=== PATIENT | male | born 1940 | race Caucasian/White ===

== ENCOUNTER → 2017-12-12 07:58 | Outpatient (CLI) | payer OTHER, SELFPAY ==
[2017-12-12 08:53] LABS: Basophils Percent Auto 0.2 % (0-2); Eosinophils Percent Auto 1.8 % (2-4); Hematocrit 42.8 % (41-53); Hemoglobin 14.5 g/dL (13.5-17.5); Lymphocytes Percent Auto 35.1 % (25-40); Mean Corpuscular Hemoglobin 30.8 PG (26-34); Mean Corpuscular Volume 90.6 fL (80-100); Monocytes Percent Auto 7.5 % (3-14); Neutrophils Absolute Auto 2800 /uL (3000-5900); Neutrophils Percent Auto 55.4 % (50-75); Platelet Count 173 X10^3/uL (150-400); Red Blood Cell Count 4.72 X10^6/uL (4.5-5.9); Red Cell Distribution Width 13.2 % (11.6-14.8); White Blood Cell Count 5.1 X10^3/uL (4.5-11.0)
[2017-12-12 09:00] LABS: Add Manual Diff / Slide Review SLIDE REVIEW
[2017-12-12 09:12] LABS: Alanine Aminotransferase 30 IU/L (21-72); Albumin Globulin Ratio 1.3 (1.0-2.8); Alkaline Phosphatase 52 U/L (38-126); Aspartate Aminotransferase 28 IU/L (17-59); BUN Creatinine Ratio 21.7 (6-22); Bilirubin Total 1.1 mg/dL (0.2-1.3); Blood Urea Nitrogen 13 mg/dL (9-20); Calcium 9.5 mg/dL (8.4-10.2); Carbon Dioxide 28 mmol/L (22-32); Chloride 103 mmol/L (98-107); Cholesterol 174 mg/dL (140-199); Estimated Glomerular Filt Rate > 60.0 mL/min (>60); Glucose 100 mg/dL (80-110); HDL Cholesterol 47 mg/dL (40-60); HEMOLYSIS < 15 (0-50); LDL Cholesterol Calculated 112 mg/dL (<100); Potassium 4.5 mmol/L (3.4-5.1); Sodium 140 mmol/L (137-145); Triglycerides 74 mg/dL (35-150)
[2017-12-12 09:20] LABS: RBC Morphology Normal Morphology
== END ==
PROVIDERS: PCP Internal Medicine; Visit Provider Internal Medicine
DX: E78.00 Pure hypercholesterolemia, unspecified (principal); D64.9 Anemia, unspecified; E66.9 Obesity, unspecified
CPT/HCPCS: 36415; 80053; 80061; 85025

== ENCOUNTER → 2018-01-07 09:35 | Outpatient (CLI) | payer OTHER, SELFPAY ==
[2018-01-07 12:02] LABS: Hep C Virus Ab w/Reflex Quant NEGATIVE s/c (NEGATIVE)
== END ==
PROVIDERS: PCP Internal Medicine; Visit Provider Internal Medicine
DX: Z13.818 Encounter for screening for other digestive system disorders (principal)
CPT/HCPCS: 36415; 86803

== ENCOUNTER → 2018-06-11 08:55 | Outpatient (CLI) | payer OTHER, SELFPAY ==
[2018-06-11 09:41] LABS: Add Manual Diff / Slide Review NO; Basophils Percent Auto 0.2 % (0-2); Eosinophils Percent Auto 1.8 % (2-4); Hematocrit 44.3 % (41-53); Hemoglobin 14.9 g/dL (13.5-17.5); Lymphocytes Percent Auto 37.5 % (25-40); Mean Corpuscular HGB Conc 33.6 % (30-36); Mean Corpuscular Hemoglobin 30.8 PG (26-34); Mean Corpuscular Volume 91.7 fL (80-100); Monocytes Percent Auto 7.5 % (3-14); Neutrophils Absolute Auto 3300 /uL (3000-5900); Platelet Count 175 X10^3/uL (150-400); Red Blood Cell Count 4.83 X10^6/uL (4.5-5.9); White Blood Cell Count 6.1 X10^3/uL (4.5-11.0)
[2018-06-11 10:01] LABS: HEMOLYSIS < 15 (0-50); Iron 88 ug/dL (49-181)
[2018-06-11 10:02] LABS: Blood Urea Nitrogen 12 mg/dL (9-20); Calcium 9.4 mg/dL (8.4-10.2); Carbon Dioxide 30 mmol/L (22-32); Chloride 102 mmol/L (98-107); Estimated Glomerular Filt Rate > 60.0 mL/min (>60); Glucose 105 mg/dL (80-110); HEMOLYSIS 21 (0-50); Potassium 4.3 mmol/L (3.4-5.1); Sodium 144 mmol/L (137-145)
[2018-06-11 10:13] LABS: Percent Iron Saturation 33 % (20-50); Total Iron Binding Capacity 267 ug/dL (261-462); Transferrin 212 mg/dL (206-381)
== END ==
PROVIDERS: PCP Internal Medicine; Visit Provider Internal Medicine Cardiovascular Disease
DX: D64.9 Anemia, unspecified (principal); I48.2 Chronic atrial fibrillation
CPT/HCPCS: 36415; 80048; 83540; 83550; 85025

== ENCOUNTER → 2019-01-20 07:31 | Outpatient (CLI) | payer OTHER, SELFPAY ==
[2019-01-20 08:41] LABS: Add Manual Diff / Slide Review NO; Basophils Absolute Auto 0 /uL (0-100); Basophils Percent Auto 0.3 % (0-2); Eosinophils Absolute Auto 100 /uL (0-450); Eosinophils Percent Auto 2.7 % (2-4); Hematocrit 42.8 % (41-53); Hemoglobin 14.3 g/dL (13.5-17.5); Lymphocytes Absolute Auto 2200 /uL (1100-4500); Lymphocytes Percent Auto 40.6 % (25-40); Mean Corpuscular HGB Conc 33.5 % (30-36); Mean Corpuscular Hemoglobin 30.7 PG (26-34); Mean Corpuscular Volume 91.6 fL (80-100); Monocytes Absolute Auto 400 /uL (0-900); Monocytes Percent Auto 7.7 % (3-14); Neutrophils Absolute Auto 2700 /uL (1500-7000); Neutrophils Percent Auto 48.7 % (50-75); Platelet Count 171 X10^3/uL (150-400); Red Blood Cell Count 4.67 X10^6/uL (4.5-5.9); White Blood Cell Count 5.5 X10^3/uL (4.5-11.0)
[2019-01-20 09:03] LABS: Blood Urea Nitrogen 12 mg/dL (9-20); Calcium 9.2 mg/dL (8.4-10.2); Carbon Dioxide 30 mmol/L (22-32); Chloride 103 mmol/L (98-107); Cholesterol 167 mg/dL (140-199); Estimated Glomerular Filt Rate > 60.0 mL/min (>60); Glucose 110 mg/dL (80-110); HDL Cholesterol 39 mg/dL (40-60); HEMOLYSIS < 15 (0-50); LDL Cholesterol Calculated 119 mg/dL (<100); Potassium 4.2 mmol/L (3.4-5.1); Sodium 138 mmol/L (137-145); Triglycerides 44 mg/dL (35-150)
== END ==
PROVIDERS: PCP Internal Medicine; Visit Provider Internal Medicine
DX: I10 Essential (primary) hypertension (principal); E78.00 Pure hypercholesterolemia, unspecified; D64.9 Anemia, unspecified
CPT/HCPCS: 36415; 80048; 80061; 85025

== ENCOUNTER → 2019-03-19 07:20 | Outpatient (CLI) | payer OTHER, SELFPAY ==
--- NOTE | 2019-03-19 | DI.ECHO.S_ITS ---
[facility]---------+ [facility] +---------+ : : [address] : [address] : : : : [id number] : : : : Phone: [phone]+ Echocardiogram Report + + :Name: MELLY STANTON Study Date: 03/19/2019 Height: 62 in : :[facility] Weight: 164 lb : : Gender: Male BSA: 1.8 m2 : :: 1940 Age: 78 yrs BP: 124/64 mmHg: :Reason For Study: TR : : Performed By: Mane Ramos : :Referring: JIM MAYA : + + Interpretation Summary The left ventricle is normal in size. The ejection fraction is estimated to be 65-70%. The right ventricle is mildly dilated. The right ventricular systolic function is normal. 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 The anterior mitral leaflet is mild to moderately thickened. No significant mitral valve stenosis or mitral regurgitation. There is mild aortic regurgitation. Compared to the prior echo study, there has been no change in the severity of aortic regurgitation. There is moderate tricuspid regurgitation. Compared to the prior echo exam, there has been no change in TR severity. The right ventricular systolic pressure is estimated to be at least 28 mmHg based on an estimated right atrial pressure of 3 mm Hg. Compared to the prior echo exam, there has been a decrease in the severity of pulmonary hypertension. Procedure: A two-dimensional transthoracic echocardiogram with color flow and Doppler was performed. The study quality was technically adequate. Comparison is made with the echocardiogram of 08/16/16. The patient was in atrial fibrillation with controlled ventricular rate during the exam. The patient had aheart rate of 56-75 beats per minute. Left Ventricle: The left ventricle is normal in size. There is moderate proximal septal thickening noted. There is no echo evidence for significant left ventricular outflow tract obstruction. There is no thrombus. The ejection fraction is estimated to be 65-70%. There has been no significant change since the previous study. There are no focal wall motion abnormalities. E/E' med: 29.7. Right Ventricle: The right ventricle is mildly dilated. There has been no significant change since the previous study. The right ventricular systolic function is normal. Atria: The left atrium is severely dilated. The left atrium has remained unchanged in size since the prior echo exam. The right atrium is mildly dilated. The interatrial septum is intact with no evidence for an atrial septal defect. Mitral Valve: There is mild to moderate mitral annular calcification. The anterior mitral leaflet is mild to moderately thickened. No significant mitral valve stenosis or mitral regurgitation. 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 There is trace mitral regurgitation. Aortic Valve: The aortic valve is trileaflet. The aortic valve opens well. There is mild aortic valve sclerosis. There is no aortic valve stenosis. There is mild aortic regurgitation. Compared to the prior echo study, there has been no change in the severity of aortic regurgitation. Tricuspid Valve: The tricuspid valve leaflets are thin and pliable. There is moderate tricuspid regurgitation. The right ventricular systolic pressure is estimated to be at least 28 mmHg based on an estimated right atrial pressure of 3 mm Hg. Compared to the prior echo exam, there has been no change in TR severity. Compared to the prior echo exam, there has been a decrease in the severity of pulmonary hypertension. Pulmonic Valve: The pulmonic valve is normal in structure and function. There is no pulmonic valvular regurgitation. Great Vessels: The aortic root is normal size. The ascending aorta is at the upper limits of normal in size. The pulmonary artery is normal size. The IVC is of normal diameter and collapses greater than 50% with a sniff. This suggests a low right atrial pressure of 3 mm Hg. Pericardium/ Pleura There is no pericardial effusion. There is no pleural effusion. MMode/2D Measurements & Calculations LVIDd: 4.7 cm LVOT diam: 2.4 cm LVIDs: 2.4 cm Ao root diam: 3.8 cm FS: 49.8 % Aortic Jxn: 3.0 cm EPSS: 0.83 cm asc Aorta Diam: 3.5 cm IVSd: 0.86 cm Ao Arch Diam (Prox Trans): 2.8 cm LVPWd: 1.0 cm LV avina. diameter/BSA (cm/m^2): 2.7 LV sys. diameter/BSA (cm/m^2): 1.4 LA dimension: 4.6 cm RA long axis: 5.7 cm LA A2 area: 32.8 cm2 RA area: 20.1 cm2 LA A4 area: 32.4 cm2 RA vol: 59.7 ml LA length (vol): 6.4 cm RA : 34.0 ml/m2 LA vol: 141.2 ml IVC diam: 2.1 cm LA vol index: 80.4 ml/m2 RVD1 (basal): 5.2 cm RVD2 (mid): 4.1 cm Doppler Measurements & Calculations Ao V2 max: 118.0 cm/sec LVOT Max Ricky: 100.2 cm/sec Ao V2 mean: 89.6 cm/sec LV V1 max P.0 mmHg Ao max P.6 mmHg LV V1 VTI: 22.6 cm Ao mean P.4 mmHg JESSIE(I,D): 4.2 cm2 Ao V2 VTI: 24.7 cm JESSIE(V,D): 3.9 cm2 sev ratio: 0.91 JESSIE indexed to BSA (cm^2/m^2): 2.4 AI P1/2t: 1103 msec AI dec slope: 113.9 cm/sec2 MV E max ricky: 159.6 cm/sec TR max ricky: 250.9 cm/sec MV A max ricky: 2.0 cm/sec TR max P.2 mmHg MV E/A: 78.1 PA V2 max: 72.5 cm/sec Med Peak E' Ricky: 5.4 cm/sec PA V2 mean: 51.0 cm/sec E/E' med: 29.7 PA mean P.2 mmHg Lat Peak E' Ricky: 8.2 cm/sec PA pr(Accel): 39.1 mmHg E/E' lat: 19.4 PA Accel Time: 0.10 sec E/e' average: 24.6 MV dec time: 0.26 sec MVA(VTI): 3.5 cm2 MV V2 mean: 99.6 cm/sec SV(LVOT): 104.5 ml MV mean P.6 mmHg MV V2 VTI: 30.2 cm Reading Physician:03:55 PM
[2019-03-19 09:00] LABS: BUN Creatinine Ratio 16.7 (6-22); Blood Urea Nitrogen 10 mg/dL (9-20); Calcium 9.7 mg/dL (8.4-10.2); Carbon Dioxide 27 mmol/L (22-32); Chloride 102 mmol/L (98-107); Estimated Glomerular Filt Rate > 60.0 mL/min (>60); Glucose 133 mg/dL (80-110); HEMOLYSIS < 15 (0-50); Potassium 4.4 mmol/L (3.4-5.1); Sodium 138 mmol/L (137-145)
== END ==
PROVIDERS: PCP Internal Medicine; Visit Provider Internal Medicine Cardiovascular Disease
DX: I08.2 Rheumatic disorders of both aortic and tricuspid valves (principal); I48.2 Chronic atrial fibrillation
CPT/HCPCS: 36415; 80048; 93306

== ENCOUNTER → 2019-04-21 07:35 | Outpatient (CLI) | payer OTHER, SELFPAY ==
[2019-04-21 08:49] LABS: Alanine Aminotransferase 23 IU/L (21-72); Aspartate Aminotransferase 30 IU/L (17-59); Cholesterol 179 mg/dL (140-199); HDL Cholesterol 46 mg/dL (40-60); LDL Cholesterol Calculated 120 mg/dL (<100); Triglycerides 65 mg/dL (35-150)
[2019-04-24 14:19] LABS: PSA Free % 13 % (calc) (> 25); PSA, Total 11.2 ng/mL (< 4.1)
== END ==
PROVIDERS: PCP Internal Medicine; Visit Provider Internal Medicine
DX: E78.00 Pure hypercholesterolemia, unspecified (principal); R97.20 Elevated prostate specific antigen [PSA]
CPT/HCPCS: 36415; 80061; 84153; 84154; 84450; 84460

== ENCOUNTER → 2019-07-29 09:05 | Outpatient (CLI) | payer OTHER, SELFPAY ==
[2019-07-29 10:29] LABS: Alanine Aminotransferase 28 IU/L (<50); Aspartate Aminotransferase 37 IU/L (17-59); Cholesterol 123 mg/dL (140-199); HDL Cholesterol 38 mg/dL (40-60); LDL Cholesterol Calculated 75 mg/dL (<100); Triglycerides 52 mg/dL (35-150)
== END ==
PROVIDERS: PCP Internal Medicine; Visit Provider Internal Medicine
DX: R97.20 Elevated prostate specific antigen [PSA] (principal); E78.00 Pure hypercholesterolemia, unspecified
CPT/HCPCS: 36415; 80061; 84450; 84460

== ENCOUNTER → 2020-03-16 10:27 | Outpatient (CLI) | payer OTHER, SELFPAY ==
[2020-03-16 12:44] LABS: BUN Creatinine Ratio 15.2 (6-22); Blood Urea Nitrogen 10 mg/dL (9-20); Calcium 9.6 mg/dL (8.4-10.2); Carbon Dioxide 30 mmol/L (22-32); Chloride 101 mmol/L (98-107); Estimated Glomerular Filt Rate > 60.0 mL/min (>60); Glucose 95 mg/dL (80-110); HEMOLYSIS < 15 (0-50); Potassium 4.9 mmol/L (3.4-5.1); Sodium 137 mmol/L (137-145)
== END ==
PROVIDERS: PCP Internal Medicine; Referring Provider Internal Medicine Cardiovascular Disease; Visit Provider Internal Medicine Cardiovascular Disease
DX: I48.20 Chronic atrial fibrillation, unspecified (principal)
CPT/HCPCS: 36415; 80048

== ENCOUNTER → 2020-03-24 11:02 | Outpatient (CLI) | payer OTHER, SELFPAY ==
[2020-03-24 12:53] LABS: Add Manual Diff / Slide Review NO; Basophils Absolute Auto 0 /uL (0-100); Basophils Percent Auto 0.3 % (0-2); Eosinophils Absolute Auto 100 /uL (0-450); Eosinophils Percent Auto 2.4 % (2-4); Hematocrit 41.3 % (41-53); Hemoglobin 14.1 g/dL (13.5-17.5); Lymphocytes Absolute Auto 1900 /uL (1100-4500); Lymphocytes Percent Auto 30.6 % (25-40); Mean Corpuscular HGB Conc 34.2 % (30-36); Mean Corpuscular Volume 90.7 fL (80-100); Monocytes Absolute Auto 500 /uL (0-900); Monocytes Percent Auto 8.7 % (3-14); Neutrophils Absolute Auto 3500 /uL (1500-7000); Platelet Count 175 X10^3/uL (150-400); Red Blood Cell Count 4.55 X10^6/uL (4.5-5.9); Red Cell Distribution Width 13.3 % (11.6-14.8)
[2020-03-24 13:05] LABS: C-Reactive Protein Quant 0.6 mg/dL (<1.0); Uric Acid 4.7 mg/dL (3.5-8.5)
[2020-03-24 13:06] LABS: Rheumatoid Factor < 8.6 IU/mL (<12.0)
[2020-03-24 13:19] LABS: Erythrocyte Sedimentation Rate 2 MM/HR (0-15)
[2020-03-25 17:08] LABS: ANA Screen, IFA Negative (.)
== END ==
PROVIDERS: PCP Internal Medicine; Referring Provider Orthopaedic Surgery; Visit Provider Orthopaedic Surgery
DX: M17.12 Unilateral primary osteoarthritis, left knee (principal); M25.561 Pain in right knee
CPT/HCPCS: 36415; 84550; 85025; 85651; 86038; 86140; 86430

== ENCOUNTER → 2020-03-30 14:05 | Outpatient (CLI) | payer OTHER, SELFPAY ==
--- NOTE | 2020-03-30 | DI.MRI.S_ITS ---
PROCEDURE: MR KNEE LT WO CON INDICATIONS: Pain in right knee TECHNIQUE: Noncontrast sagittal PD fast spin echo and T2 fast spin echo with fat saturation, sagittal 3-D FLASH with fat saturation; coronal T1 spin echo and PD fast spin echo with fat saturation, and axial PD fast spin echo with fat saturation through the knee. COMPARISON: [facility] [place], CR, XR KNEE ARTHRITIC SERIES BI, 03/24/2020, 10:17. FINDINGS: Image quality: Excellent. Menisci: Medial extrusion of the medial meniscus, which is fragmented, and demonstrates multifocal amorphous and linear high signal intensity throughout, demonstrating superior and inferior articular surface extension. Lateral meniscus is intact. Cruciate ligaments: The anterior cruciate ligament demonstrates mild T2 signal elevation along its course, indicating myxoid degeneration. Moderate sized focus of fluid signal intensity within the posterior cruciate ligament is present, indicating partial thickness tearing. Medial structures: The medial collateral ligament demonstrates moderate T2 signal elevation within its mid/superior aspect. Visualized portions of the pes anserinus tendons appear normal. Moderate medial bursal fluid. Lateral structures: The lateral collateral ligament, long and short heads of the biceps femoris tendon appear intact. The popliteus tendon appears normal. Iliotibial band appears normal. Anterior structures: The quadriceps and patellar tendons appear intact. Patellar alignment is normal. No femoral trochlear dysplasia or ventral trochlear prominence. Moderate fluid in the infrapatellar fat pad. Bones and cartilage: No bone marrow contusions or fractures. There is moderate tricompartmental periarticular osteophyte formation. There is moderate subchondral degenerative marrow edema within the medial femoral condyle, medial tibial plateau, and lateral aspect of the tibial spines. Severe articular cartilage loss diffusely overlies the weight-bearing aspects of the medial femoral condyle and medial tibial plateau. Mild articular cartilage loss diffusely overlies the weight-bearing aspects of the lateral femoral condyle and lateral tibial plateau. Superimposed moderate articular cartilage loss overlies the posterior weight-bearing aspect of the lateral femoral condyle. Moderate articular cartilage loss overlies the medial patellar facet. There is a 3 mm diameter region of high-grade articular cartilage loss overlying the lateral femoral trochlea. Joint space: There is a moderate knee joint effusion with multiple intra-articular loose bodies. Small ganglion cyst along the popliteus. Trace Santamaria's cyst. Normal appearing synovial plicae are incidentally noted. IMPRESSION: 1. Tricompartmental osteoarthritis with associated articular cartilage loss. 2. Complex tearing of the medial meniscus. 3. Partial thickness medial collateral ligament tear. 4. Partial thickness posterior cruciate ligament tear. 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 6. Knee joint effusion and intra-articular loose bodies. 7. Medial bursitis. Dictated by: Hermelindo Archibald M.D. on 03/30/2020 at 16:25 Approved by: Hermelindo Archibald M.D. on 03/30/2020 at 16:29
== END ==
PROVIDERS: PCP Internal Medicine; Referring Provider Orthopaedic Surgery; Visit Provider Orthopaedic Surgery
DX: M25.561 Pain in right knee (principal); S83.231A Complex tear of medial meniscus, current injury, right knee, initial encounter; M17.11 Unilateral primary osteoarthritis, right knee; S83.411A Sprain of medial collateral ligament of right knee, initial encounter; S83.521A Sprain of posterior cruciate ligament of right knee, initial encounter; M71.561 Other bursitis, not elsewhere classified, right knee; M25.461 Effusion, right knee
CPT/HCPCS: 73721

== ENCOUNTER → 2020-04-19 08:30 | Outpatient (CLI) | payer OTHER, SELFPAY ==
[2020-04-19 09:06] LABS: Add Manual Diff / Slide Review NO; Basophils Absolute Auto 0 /uL (0-100); Basophils Percent Auto 0.2 % (0-2); Eosinophils Absolute Auto 100 /uL (0-450); Eosinophils Percent Auto 2.1 % (2-4); Hematocrit 41.7 % (41-53); Hemoglobin 14.1 g/dL (13.5-17.5); Lymphocytes Absolute Auto 2200 /uL (1100-4500); Lymphocytes Percent Auto 35.5 % (25-40); Mean Corpuscular HGB Conc 33.8 % (30-36); Mean Corpuscular Hemoglobin 30.8 PG (26-34); Mean Corpuscular Volume 91.1 fL (80-100); Monocytes Absolute Auto 500 /uL (0-900); Monocytes Percent Auto 7.4 % (3-14); Neutrophils Absolute Auto 3400 /uL (1500-7000); Neutrophils Percent Auto 54.8 % (50-75); Platelet Count 159 X10^3/uL (150-400); Red Blood Cell Count 4.58 X10^6/uL (4.5-5.9); Red Cell Distribution Width 13.2 % (11.6-14.8); White Blood Cell Count 6.2 X10^3/uL (4.5-11.0)
[2020-04-19 09:26] LABS: BUN Creatinine Ratio 14.8 (6-22); Blood Urea Nitrogen 9 mg/dL (9-20); Calcium 9.4 mg/dL (8.4-10.2); Carbon Dioxide 29 mmol/L (22-32); Chloride 103 mmol/L (98-107); Estimated Glomerular Filt Rate > 60.0 mL/min (>60); Glucose 146 mg/dL (80-110); HEMOLYSIS < 15 (0-50); Potassium 4.2 mmol/L (3.4-5.1); Sodium 139 mmol/L (137-145)
[2020-04-19 09:48] LABS: Hemoglobin A1C% w Est Avg Glu 6.1 % (4.0-6.0)
[2020-04-19 10:40] LABS: Appearance Urine UA CLEAR; Bilirubin Urine UA NEGATIVE (NEGATIVE); Color Urine UA YELLOW; Glucose Urine UA NEGATIVE (Negative); Ketones Urine UA NEGATIVE (NEGATIVE); Leukocyte Esterase Urine UA NEGATIVE (NEGATIVE); Nitrite Urine UA NEGATIVE (Negative); Occult Blood Urine UA 1+ (Negative); Protein Urine UA NEGATIVE (Negative); Specific Gravity Urine UA 1.015 (1.000-1.035); Urobilinogen Urine UA 0.2 E.U./dL (0.2); pH Urine UA 5.5 (4.5-8.0)
[2020-04-19 10:55] LABS: Bacteria Urine Few (2-10); Culture Indicated Urine Specimen Cultured; RBC Urine 1-5/HPF (0-5/HPF); WBC Urine 5-10/HPF (0-5/HPF)
== END ==
PROVIDERS: PCP Internal Medicine; Referring Provider Orthopaedic Surgery; Visit Provider Orthopaedic Surgery
DX: Z01.818 Encounter for other preprocedural examination (principal); Z01.812 Encounter for preprocedural laboratory examination; R73.9 Hyperglycemia, unspecified; N39.0 Urinary tract infection, site not specified
CPT/HCPCS: 36415; 80048; 81001; 83036; 85025; 87086; 93005

== ENCOUNTER → 2020-06-12 13:09 | Outpatient (CLI) | payer OTHER, SELFPAY ==
[2020-06-12 15:15] LABS: COVID19 -Nasal RAPID Negative (Negative)
== END ==
PROVIDERS: PCP Internal Medicine; Visit Provider Physician Assistant
DX: Z11.59 Encounter for screening for other viral diseases (principal)
CPT/HCPCS: 87635

== ENCOUNTER 2020-06-15 06:16 | Day surgery (SDC) | payer OTHER, SELFPAY ==
[2020-06-09 12:57] VITALS: BMI 29.8
[2020-06-15] VITALS (14 sets, daily range): BP systolic 112–156; BP diastolic 66–92; PULSE 68–86; RESP 12–20; TEMP 36.3–37.1; O2SAT 92–97; BMI 29.3
--- NOTE | 2020-06-15 06:00 | DI.RAD.S_ITS ---
PROCEDURE: XR KNEE LT 1TO2V INDICATIONS: TKA TECHNIQUE: 2 view(s) of the knee acquired. COMPARISON: [facility] [place], CR, XR KNEE ARTHRITIC SERIES BI, 03/24/2020, 10:17. [facility], MR, MR KNEE LT WO CON, 03/30/2020, 14:22. FINDINGS: Bones: Patient is status post knee joint arthroplasty. Hardware components are in expected positions. Visualized bony structures are intact. Soft tissues: Overlying postoperative changes are noted. IMPRESSION: Left knee prosthesis in anatomic alignment. Dictated by: Shannan Painter M.D. on 06/15/2020 at 13:09 Approved by: Shannan Painter M.D. on 06/15/2020 at 13:10
[2020-06-15] MEDS: PREGABALIN 75 MG CAPSULE PO (06:51)
[2020-06-15] MEDS: LACTATED RINGERS 1,000 ML 42 ML IV (06:51)
[2020-06-15] MEDS: CELECOXIB 200 MG CAPSULE PO (06:51)
[2020-06-15] MEDS: VANCOMYCIN 1,000 MG/200 ML PIGGYBACK 200 MG IV (06:59)
--- NOTE | 2020-06-15 07:37 | PM.PREOP ---
Pre-operative Note COVID-19 COVID-19 status: Negative Interval Note History & Physical reviewed/Exam performed by Physician: Yes Changes to H&P: No
--- NOTE | 2020-06-15 07:38 | P.OP_ITS ---
Operative Date/Time/Diagnoses Date of procedure: 06/15/20 Time of procedure: 07:38 Pre-op diagnosis: Left knee osteoarthritis Post-op diagnosis: same Procedure & Clinicians Procedure: Left total knee arthroplasty Same procedure as scheduled: Yes Indications: The patient has had progressively worsening left knee pain with radiographic changes consistent with arthritis. Non-operative management has failed and the patient has requested total knee replacement. The risks, benefits and alternatives to surgery were discussed with the patient prior to proceeding. Risks discussed included, but were not limited to, failure to relieve pain, stiffness, infection, nerve damage, deep venous thrombosis, pulmonary embolism, stroke, coma, heart attack, permanent paralysis and , as well as the potential need for eventual revision of the prosthetic. Surgeon: Micheline Macario Sawdust Machine Operator: Tamiko Holland Anesthesia Type: General and Spinal Operative Notes Findings: Severe left knee osteoarthritis, good stability Closure Type: primary Specimen(s): none sent Prosthetic devices, grafts, tissues, transplants, or devices: Journey BCS 2 Macario and Nephew size 6 femur, size 5 tibia, +9 poly, 35 round patella +9 Applied: drain(s) Estimated Blood Loss (mL): 250 Blood products transfused: none Tourniquet time (min): 93 Procedure in detail: The patient was seen in the pre-operative area, where the patient identified the left knee as the operative site and this was marked with my initials. The patient received pre-operative antibiotics, and was taken to the operating room and placed on the operative table in the supine position. After satisfactory anesthesia, a aircraft time clerk out was performed. The left leg was encircled with a tourniquet about the proximal thigh, and the leg was prepared from the toes to the tourniquet with ChloroPrep in the usual fashion and draped through sterile drapes. The leg was elevated and exsanguinated with Eschmark bandage and the tourniquet inflated to [250] mmHg pressure. The knee was approached through an approximately 18 cm incision centered over the patella and carried into the knee through a medial parapatellar arthrotomy. A portion of the medial and lateral meniscus was resected. Soft tissue was carefully mobilized around the patella the patella was measured with a caliper. Bone was resected from the patella and the patellar height was reconstituted with up an appropriate sized patellar component. A cover was then placed on the patella. A small amount of additional medial and lateral meniscus was resected. The visionare guide fit well to the distal femur. It looked like an appropriate distal femoral cut and the cut was made without difficulty. The rotation was assessed and the appropriate size femoral guide was placed on the distal femur and finishing cuts were made. There was no evidence of notching. The anterior, posterior and chamfer cuts were then made. The posterior osteophytes and soft tissues were then removed. The posterior capsule was injected with part of a mixture of 60 ml 0.25% Marcaine mixed with 20 ml Exparel for post operative pain control. The remainder of this mixture was injected into the capsule and subcutaneous tissues during cement curing. The tibia was prepared and the visionaire guide fit well to the distal tibia. The rotation was assessed. The patient was placed in extension residual medial and lateral meniscus as well as any residual bone was carefully resected. [No] additional tibia was resected. Hemostasis was achieved especially posteriorly. Additional local was injected into the posterior capsule. The extension gap was assessed and additional releases for gap balancing were performed as necessary. It was checked with the gap tariff inspector. The femoral component was trial was placed and the notch was finished. Trial tibial and femoral components were then placed and the knee placed through a range of motion. Range of motion was [0-130], with good stability throughout the range. The trials were then removed, and the tibia was finished. The bone was prepared with pulsatile lavage, and dried with a sponge. Cement was applied and the final prosthetics placed. Excess cement was removed during and after cement curing. A brief Betadine soak was performed. After confirming there was no extruded cement posteriorly, the final tibial insert was placed. The knee was copiously irrigated and the tourniquet deflated. Hemostasis was obtained with the Bovie cautery. A drain was placed and brought out superolaterally. The capsule was closed with interrupted Vicryl suture. The subcutaneous layer was closed with barbed sutures, and the skin with a running 3-0 V-Lock suture and Surgical glue. An Aquacel Ag dressing was applied and the patient was taken to recovery having tolerated the procedure well. Complications: none Post-operative Condition: stable Disposition: Acute Care Plan for aftercare: The patient will be maintained on a standard total knee replacement protocol with weight bearing as tolerated. The patient will receive Eliquis and sequential compression devices for DVT prophylaxis. The patient will be discharged home when safe for the home environment.
[2020-06-15] MEDS: CEFAZOLIN 2 GM/100 ML FROZ.PIGGY IV ×2 (08:01→19:32)
[2020-06-15] MEDS: TRANEXAMIC ACID 1,000 MG VIAL 1000 MG INJ ×2 (08:22→10:10)
--- NOTE | 2020-06-15 08:23 | SUR.OPER ---
Supine on padded OR bed. Pillow under head, arms secured on padded armboards <90 degree abduction. Safety belt across torso. Non-operative leg secured with tape over blanket over lower leg. Operative leg secured in DeMayo positioner. Foam padded brace at thigh of operative leg.
[2020-06-15] MEDS: SODIUM CHLORIDE IRRIG SOLUTION 250 ML, POVIDONE-IODINE SPONGE STICKS 1 APPLIC IRR (08:34)
[2020-06-15] MEDS: BUPIVACAINE LIPOSOME 266 MG/20 ML VIAL INJ (08:34)
[2020-06-15] MEDS: BUPIVACAINE 0.5% W/ EPI (PF) 30 ML VIAL INJ (08:35)
[2020-06-15] MEDS: OXYCODONE IR 5 MG TABLET PO (11:16)
[2020-06-15] MEDS: LACTATED RINGERS 1,000 ML 100 ML IV (12:32)
--- NOTE | 2020-06-15 13:40 | PT.IIE ---
Current Diagnoses Unilateral primary osteoarthritis, left knee (06/15/20) Surgery Performed Operation Date: 06/15/20 07:45 Actual Procedures p Total Knee Arthroplasty(Left) - Micheline Macario MD Surgical History (Last Updated 06/09/20 @ 14:57 by Aparna Jacinto, RN) H/O wrist surgery (2006) History of ankle surgery (1989) History of hernia surgery (2006) History of prostate surgery (2002) Hx of arthroscopy of right knee (2013) Hx of bilateral cataract extraction Hx of hemorrhoidectomy (1976) Hx of mitral valve repair (10/1998) S/P patent foramen ovale closure (10/1998) Medical History (Last Updated 06/09/20 @ 14:57 by Aparna Jacinto RN) Afib Arthritis GERD (gastroesophageal reflux disease) HLD (hyperlipidemia) HTN (hypertension) Osteoarthritis Spinal stenosis Physical Therapy Inpatient Evaluation/Re-Eval M1 PT/OT-IP Prior Functional Status Start: 06/15/20 15:13 Freq: NEEDED Status: Active Protocol: Document 06/15/20 13:40 AB (Rec: 06/15/20 15:36 AB [id number]) Medical Review Prior Functional Status Medical History Reviewed Yes Diet/Fluid Consistency Regular Communication able to make needs known Mobility and Gait pt stated that he is indpeendent with all mobilities and ambulation without AD but uses a SPC first thing in the morning for ~ 1 min per pt and then without AD afterwards and uses SPC for long distance outdoor mobility. Social History Household Members spouse Living Arrangements House Number of Floors (Floors) Two Floors Number of Stairs To Enter/Railing? pt stays on main level of the house has 5 steps to enter with R rail ascending Home Environment Standard Height Toilet,Tub/ Shower Home Equipment Front Wheel Walker,Straight Cane,Raised Toilet Seat w/ Armrests,Shower Seat without Backrest,Hand Held Shower,Grab Bars In Shower Additional Social History Comment has a hurrycane for steps per pt stated that he sleeps on his couch M2 PT-IP Current Condition Start: 06/15/20 15:13 Freq: NEEDED Status: Active Protocol: Document 06/15/20 13:40 AB (Rec: 06/15/20 15:36 AB [email or web address]) Physical Therapy Current Condition Current Condition Evaluation Date 06/15/20 Treatment Diagnosis s/p L TKA; difficulty in walking Onset Date 06/15/20 Weight Bearing Status Weight Bearing Status Weight Bear as Tolerated Allowed Weight Bearing Amount (enter % LLE WBAT or #) (%) M3 PT-IP Subjective Start: 06/15/20 15:13 Freq: NEEDED Status: Active Protocol: Document 06/15/20 13:40 AB (Rec: 06/15/20 15:36 AB [email or web address]) Subjective Physical Therapy Visit Type Type Initial Evaluation Visit Start Time 13:40 Visit Stop Time 14:58 Total Visit Minutes 78 Number of BATCH FREEZER Visits 0 Physical Therapy Visit Comments Patient Comments pt is agreeable to do PT Therapy Pain Assessment Pain When Pain Assessed During Mobility Pain Present Pain Present Pain Reported Location Left Knee Intensity 1 Scale Used Numeric (0 - 10) Pain Management Techniques Modification of Treatment,Re- positioning,Timing of Activity with Medications M4 PT-IP Mobility and Gait Start: 06/15/20 15:13 Freq: NEEDED Status: Active Protocol: Document 06/15/20 13:40 AB (Rec: 06/15/20 15:36 AB [email or web address]) PT-Bed Mobility Assessment Supine to Sit Supine to Sit Standby Assistance PT-Transfer Assessment Sit to and From Stand Sit to and from Stand Standby Assistance,Contact Guard Assistance Equipment Transfer Assistive Device Gait Belt Orthotic/Prosthetic Devices or Brace: No Transfers Transfer Destination Chair,Toilet Transfer Technique ambulated using FWW Transfer Ability Level of Assist Standby Assistance,Contact Guard Assistance,1 Person Assistance,Use of Upper Extremities Comments Mobility Comments completed supine to sit SBA. pt was able to sit on EOB SBA. BP 144/83. pt requested to use the toilet. completed sit to stand CGA and ambulated to the toilet using FWW CGA. pt was able to maintain standing using FWW for support CGA while using the urinal. ambulated out of the toilet using FWW CGA to the sink and completed handwashing maintain standing CGA. pt ambulated to the chair to rest. pt without c/o. pt requires increase time to complete tasks and with slight processing delay with instructions. pt agreed to do stairs. ambulated using FWW ~ 75 ft towards the stairs. completed up/down steps using R rail ascending and quad cane CGA. pt initially stated that he has a quad cane but then upon doing the stairs he said he has a hurrycane. assisted pt back to his room. ambulated from w/c to chair SBA using FWW. positioned on chair. call light and table placed within reach. Gait Assessment Gait Gait Assistance Required: Standby Assistance,Contact Guard Assist Distance (Feet) 75 Able to Maintain Weight Bearing Status Yes During Gait Assistive Devices Assistive Device Gait Belt,Front Wheeled Walker Orthotic/Prosthetic Devices or Brace: No Gait Deviations General Gait Pattern Decreased Stride Length, Decreased Feet Clearance,Step- to Gait Factors Limiting Gait Function Factors Limiting Gait Function Decreased Activity Tolerance, Decreased Strength,Difficulty Following Directions,Limited Range of Motion,Pain,Poor Balance,Poor Safety Awareness, Respiratory Distress Stair Climbing Assessment Evaluation Level of Assist On Stairs Contact Guard Assistance Devices Stair Climbing Assistive Devices Small Base Quad Cane,Right Railing Technique/Endurance Stair Climbing Direction Ascend and Descend Stair Climbing Technique Step to Step Number of Steps Climbed 3 Query Text: Stair Climbing Set # Repetitions (reps) 1 PT-Balance Assessment Sitting Balance and Reactions Static Sitting Balance Ability Good Dynamic Sitting Balance Ability Good Standing Balance and Reactions Static Standing Balance Ability Fair Dynamic Standing Balance Ability Fair Device Used FWW M5 PT-IP Objective Assessments Start: 06/15/20 15:13 Freq: NEEDED Status: Active Protocol: Document 06/15/20 13:40 AB (Rec: 06/15/20 15:36 AB [email or web address]) Orientation Orientation/Cognition Level of Alertness Alert Orientation Name,Place,Situation Language Function Ability No Deficits Noted Safety Awareness Decreased Safety Awareness Memory Description Short Term Impaired Gross Range of Motion Lower Extremity ROM Assessment Left Impaired Impairments L knee flexion : ~ 70 deg Strength Lower Extremity Strength Assessment Left Impaired Hip 4/5 Knee 4-/5 Coordination Assessment Gross Coordination Gross Coordination WNL Sensation Assessment Sensation Gross Sensation WNL Muscle Tone Muscle Tone WNL Yes M6 PT-IP Treatment Start: 06/15/20 15:13 Freq: NEEDED Status: Active Protocol: Document 06/15/20 13:40 AB (Rec: 06/15/20 15:36 AB [email or web address]) Physical Therapy Treatment Education Education Provided Precautions,Weight Bearing Status,Post-Op Packet,Safety M7 PT-IP Assessment and Plan Start: 06/15/20 15:13 Freq: NEEDED Status: Active Protocol: Document 06/15/20 13:40 AB (Rec: 06/15/20 15:36 AB [id number]) PT Summary Assessment and Plan Potential Rehabilitation Potential Good Status of Condition at Evaluation Stable Summary Impairments Pain,ROM,Strength,Balance,Bed Mobility,Transfers,Gait, Activity Tolerance Assessment Summary pt requiring SBA to CGA with mobility and plans to go home with spouse to assist. Pt s/p L TKA and just had surgery this morning and will likely progress during hospital stay. will conducte caregiver training if appropriate. will continue to assess progress. Goals Bed Mobility Goal Independent Transfer Goal Independent,Front Wheeled Walker Gait Goal Independent,Front Wheel Walker Gait Distance 150 Other Goals up/down 5 steps R rail + cane SBA Days to Meet Goals 5 Frequency of Treatment Frequency Of Treatment Twice a Day Treatment Plan Physical Therapy Treatment Plan Bed Mobility Training,Transfer Training,Gait Training, Therapeutic Exercise,Balance Retraining,Post Op Education, Discharge Planning,Hot or Cold Pack,Neuromuscular Re-ed, Coordination Retraining,Manual Therapy Recommendations To Nursing Amount of Assist Needed 1 Person Assist Discharge Recommendations PT Discharge Recommendations Home with Assistance, Outpatient PT Transportation Needs at Discharge Private Vehicle
[2020-06-15] MEDS: ACETAMINOPHEN 325 MG TABLET 650 MG PO ×2 (15:21→21:58)
[2020-06-15] MEDS: GABAPENTIN 300 MG CAPSULE PO ×2 (15:22→21:58)
[2020-06-15] MEDS: DOCUSATE 100 MG CAPSULE PO (21:58)
[2020-06-15] MEDS: ASPIRIN EC 81 MG TABLET PO (21:58)
[2020-06-15] MEDS: ATORVASTATIN 20 MG TABLET 10 MG PO (21:59)
--- NOTE | 2020-06-15 22:37 | PC.NURSE ---
VERY TALKATIVE PT DOING WELL- REPORTS NO PAIN TO LEFT KNEE- UP SITTING IN CHAIR - HAS WORKED WITH PT AND CONTINUES TO WEAR SCD'S- GOOD CMS AND HOPEFUL FOR DISCHARGE IN AM
[2020-06-16 00:04] VITALS: BP 139/88; PULSE 78; RESP 19; TEMP 36.8; O2SAT 97
--- NOTE | 2020-06-16 01:09 | PC.NURSE ---
Addendum entered by Sandrine Wing R.N. 06/16/20 06:29: 0530 Bag 2/2 of antibiotic infused. IVF discontinued. Pt continues to deny pain. Addendum entered by Sandrine Wing R.N. 06/16/20 01:17: 0045 IVF infusion of LR corrected to 100mL/h. Original Note: 2310 Received safe hand-off report. The patient is sitting up in the reclining chair, awake and oriented x4. He has a right forearm PIV with LR infusion at 125mL/h. He has bilateral calf SCD's on. He denies post-op pain. He has an jackie bandage wrapped around his left knee, which is CDI. He also has a hemovac drain attached, which is draining sangionous fluid. He is on room air. The chair alarm is on. No s/sx of distress. Plan: DC IVF in the AM; he is tolerating PO fluids and food. Antibiotic infusion due around 0530.
[2020-06-16 04:23] VITALS: BP 148/89; PULSE 75; RESP 18; TEMP 36.8; O2SAT 96
[2020-06-16] MEDS: PANTOPRAZOLE 20 MG TABLET PO (05:04)
[2020-06-16] MEDS: CEFAZOLIN 2 GM/100 ML FROZ.PIGGY IV (05:04)
[2020-06-16 05:20] LABS: Hematocrit 37.3 % (41-53); Hemoglobin 12.7 g/dL (13.5-17.5)
--- NOTE | 2020-06-16 07:48 | P.DS_ITS ---
History of Present Illness History of Present Illness Date Patient Seen: 06/16/20 Time Patient Seen: 07:48 Chief complaint: LT TKA *OPB* Narrative: Patient doing well. Pain well managed. Has assistance at home. Discharge Providers Provider Discharge Date: 06/16/20 Primary care physician: Eugenio Temple MD Consults: 06/15/20 06:00 Consult to Anesthesiology Routine Comment: Consulting Provider: Anesthesiologist Reason for consultation: Regional block for post operative pain control 06/15/20 11:52 Consult to Discharge Planning Routine Comment: Consult to Physical Therapy Evaluate & Treat Comment: Physician Instructions: postop TKA protocol Consult to Respiratory Therapy Evaluate & Treat Comment: Physician Instructions: Evaluate and treat Discharge provider: Ric Jacob PA-C Summary Hospital Course Discharge Diagnosis: Left knee osteoarthritis Hospital Course: Procedure: Left total knee arthroplasty Same procedure as scheduled: Yes Indications: The patient has had progressively worsening left knee pain with radiographic changes consistent with arthritis. Non-operative management has failed and the patient has requested total knee replacement. The risks, benefits and alternatives to surgery were discussed with the patient prior to proceeding. Risks discussed included, but were not limited to, failure to relieve pain, stiffness, infection, nerve damage, deep venous thrombosis, pulmonary embolism, stroke, coma, heart attack, permanent paralysis and , as well as the potential need for eventual revision of the prosthetic. Surgeon: Micheline Macario Finisher Tailor Apprentice: Tamiko Holland Anesthesia Type: General and Spinal Operative Notes Findings: Severe left knee osteoarthritis, good stability Closure Type: primary Specimen(s): none sent Prosthetic devices, grafts, tissues, transplants, or devices: Journey [employer] 2 Macario and Nephew size 6 femur, size 5 tibia, +9 poly, 35 round patella +9 Applied: drain(s) Estimated Blood Loss (mL): 250 Blood products transfused: none Tourniquet time (min): 93 Status at Discharge Cognitive/behavioral status at discharge: at baseline, oriented Functional status at discharge: uses cane/walker Overall status at discharge: patient is progressing back to baseline Time Spent with Patient Time spent: Less than 30 minutes Exam Vital Signs (past 8 hours): - 06/16/20 00:04 06/16/20 04:23 Temperature 98.2 F 98.3 F Pulse Rate 78 75 Respiratory Rate 19 18 Blood Pressure 139/88 148/89 H Pulse Oximetry 97 96 Oxygen Delivery Method Room Air Oxygen Flow Rate 0 Narrative Exam Narrative: Resting comfortably in bedside chair in no apparent distress. Dressing is clean, dry and intact. Objective Labs Result Diagrams: 06/16/20 05:05 Labs: Laboratory Results - last 24 hr 06/16/20 05:05 Hgb 12.7 L Hct 37.3 L PFSH Medical History Afib Arthritis GERD (gastroesophageal reflux disease) HLD (hyperlipidemia) HTN (hypertension) Osteoarthritis Spinal stenosis Surgical History H/O wrist surgery (2006) History of ankle surgery (1989) History of hernia surgery (2006) History of prostate surgery (2002) Hx of arthroscopy of right knee (2013) Hx of bilateral cataract extraction Hx of hemorrhoidectomy (1976) Hx of mitral valve repair (10/1998) S/P patent foramen ovale closure (10/1998) Social History household members: spouse Smoking Status: Never smoker alcohol intake: current Discharge Assessment & Plan Assessment and Plan Assessment: Patient progressing as expected status post left total knee arthroplasty. Plan of Treatment: Discharge home today in stable condition. Discharge Plan Discharge Plan Patient Disposition: Home Provider Discharge Comment: Discharged to home when cleared by therapy. Discharge orders & Medications Discharge Orders: Discharge (Order); Ordered 06/16/20 Ordered By: Ric Jacob Prescriptions: New polyethylene glycol 3350 17 gram Powder In Packet 17 g PO DAILY PRN (Reason: Constipation) Qty: 14 RF: 0 oxycodone 5 mg Tablet 5 mg PO Q3HR PRN (Reason: Pain, Moderate (4-6)) Qty: 30 RF: 0 Continued losartan 25 mg Tablet 25 mg PO DAILY Qty: 0 RF: 0 multivitamin Capsule 1 cap PO DAILY Qty: 0 RF: 0 calcium citrate-vitamin D3 [Calcium Citrate + D] 315 mg-5 mcg (200 unit) Tablet 1 tab PO DAILY Qty: 0 RF: 0 diltiazem HCl 180 mg Capsule,Extended Release 24 Hr 180 mg PO DAILY RF: 0 atorvastatin 10 mg Tablet 10 mg PO DAILY RF: 0 acetaminophen 650 mg Tablet 650 mg PO Q12H RF: 0 omeprazole 20 mg Capsule,Delayed Release(Dr/Ec) 20 mg PO DAILY RF: 0 gabapentin 300 mg Tablet 300 mg PO Q8H RF: 0 ferrous gluconate 324 mg (38 mg iron) Tablet 324 mg PO DAILY RF: 0 Xarelto 20 mg Tablet 20 mg PO DAILY RF: 0 Follow up/Referrals: Eugenio Temple MD [Primary Care Provider] - Diet/Activity/Treatments Diet: Diet as Tolerated Activity: Walk multiple times a day. Cold/Heat Therapy: Apply ice to knee multiple times a day. Skin/Wound/Dressing Care Report to your healthcare provider any signs of infection, such as:: chills, fever, night sweats, increased pain, unusual drainage and unusual redness Dressing: Keep dressing on. Okay to shower. Visit Report/Discharge Packet Instructions: How to Choose and Use a Walker, DI for Knee Replacement, DI for Constipation, How to Prevent Falls Stand Alone Forms: Surgery Discharge Discharge Data Primary Care Provider: Eugenio Temple Attending Provider: Micheline Macario VTE Deep Vein Thrombosis/Pulmonary Embolism Present on Admission: No
[2020-06-16] MEDS: dilTIAZem CD 180 MG CAP PO (08:52)
[2020-06-16] MEDS: MULTIVITAMIN 1 TABLET 1 TAB PO (08:52)
[2020-06-16] MEDS: DOCUSATE 100 MG CAPSULE PO (08:52)
[2020-06-16] MEDS: GABAPENTIN 300 MG CAPSULE PO (08:52)
[2020-06-16] MEDS: ACETAMINOPHEN 325 MG TABLET 650 MG PO (08:53)
[2020-06-16] MEDS: FERROUS SULFATE 325 MG TABLET PO (08:53)
[2020-06-16] MEDS: ASPIRIN EC 81 MG TABLET PO (08:54)
[2020-06-16 08:55] VITALS: BP 135/91; PULSE 82; RESP 16; TEMP 36.7; O2SAT 96
[2020-06-16] MEDS: OXYCODONE IR 5 MG TABLET PO (09:01)
[2020-06-16] MEDS: CALCIUM CARB/VIT D3 500/200 TABLET 1 EACH PO (09:01)
[2020-06-16] MEDS: LOSARTAN 25 MG TABLET PO (09:04)
--- NOTE | 2020-06-16 09:20 | PT.IPTN ---
Current Diagnoses Unilateral primary osteoarthritis, left knee (06/15/20) Surgery Performed Operation Date: 06/15/20 07:45 Actual Procedures p Total Knee Arthroplasty(Left) - Micheline Macario MD Physical Therapy Treatment Note M2 PT-IP Current Condition Start: 06/15/20 15:13 Freq: NEEDED Status: Discharge Protocol: Document 06/15/20 13:40 AB (Rec: 06/15/20 15:36 AB [id number]) Physical Therapy Current Condition Current Condition Evaluation Date 06/15/20 Treatment Diagnosis s/p L TKA; difficulty in walking Onset Date 06/15/20 Weight Bearing Status Weight Bearing Status Weight Bear as Tolerated Allowed Weight Bearing Amount (enter % LLE WBAT or #) (%) M3 PT-IP Subjective Start: 06/15/20 15:13 Freq: NEEDED Status: Discharge Protocol: Document 06/16/20 09:20 AB (Rec: 06/16/20 11:39 AB [id number]) Subjective Physical Therapy Visit Type Type Treatment Note Visit Start Time 09:20 Visit Stop Time 10:12 Total Visit Minutes 52 Number of SENIOR SALES ASSOCIATE Visits 0 Physical Therapy Visit Comments Patient Comments pt is agreeable to do PT Therapy Pain Assessment Pain When Pain Assessed At Rest Pain Present Pain Present Pain Reported Location Left Knee Intensity 3 Scale Used Numeric (0 - 10) Pain Management Techniques Distraction,Modification of Treatment,Re-positioning, Timing of Activity with Medications M4 PT-IP Mobility and Gait Start: 06/15/20 15:13 Freq: NEEDED Status: Discharge Protocol: Document 06/16/20 09:20 AB (Rec: 06/16/20 11:39 AB [id number]) PT-Bed Mobility Assessment Supine to Sit Supine to Sit Standby Assistance Sit to Supine Sit to Supine Standby Assistance PT-Transfer Assessment Sit to and From Stand Sit to and from Stand Standby Assistance Equipment Transfer Assistive Device Gait Belt,Front Wheeled Walker Orthotic/Prosthetic Devices or Brace: No Transfers Transfer Destination Toilet Transfer Technique ambulated using fWW Transfer Ability Level of Assist Standby Assistance Comments Mobility Comments completed sit to stand from chair SBA and ambulated to the toilet SBA using FWW. pt was able to maintain standing SBA while using urinal. ambulated out to the sink using FWW SBA. Pt ambulated back to chair and rested. agreed to ambulate and do stairs. completed ambulated using FWW SBA ~ 200 ft. completed up/ down steps using R rail and SPC CGA and initial cues but able to complete on 2nd set without cues. assisted pt back to room and ambulated from w/c to chair SBA. educated on sit<>stand techniques and pt completed x 4 reps SBA with initial cues and without afterwards. positioned on chair. call light and table placed within reach. Gait Assessment Gait Gait Assistance Required: Standby Assistance Distance (Feet) 200 Able to Maintain Weight Bearing Status Yes During Gait Assistive Devices Assistive Device Gait Belt,Front Wheeled Walker Orthotic/Prosthetic Devices or Brace: No Gait Deviations General Gait Pattern Antalgic,Decreased Stride Length,Decreased Feet Clearance,Step-to Gait Factors Limiting Gait Function Factors Limiting Gait Function Decreased Activity Tolerance, Decreased Strength,Difficulty Following Directions,Limited Range of Motion,Pain,Poor Safety Awareness Stair Climbing Assessment Evaluation Level of Assist On Stairs Contact Guard Assistance Devices Stair Climbing Assistive Devices Straight Cane,Right Railing Technique/Endurance Stair Climbing Direction Ascend and Descend Stair Climbing Technique Step to Step Number of Steps Climbed 3 Stair Climbing Set # Repetitions (reps) 2 Comments Stair Climbing Comments pls refer to mobility section for details M5 PT-IP Objective Assessments Start: 06/15/20 15:13 Freq: NEEDED Status: Discharge Protocol: Document 06/15/20 13:40 AB (Rec: 06/15/20 15:36 AB [id number]) Orientation Orientation/Cognition Level of Alertness Alert Orientation Name,Place,Situation Language Function Ability No Deficits Noted Safety Awareness Decreased Safety Awareness Memory Description Short Term Impaired Gross Range of Motion Lower Extremity ROM Assessment Left Impaired Impairments L knee flexion : ~ 70 deg Strength Lower Extremity Strength Assessment Left Impaired Hip 4/5 Knee 4-/5 Coordination Assessment Gross Coordination Gross Coordination WNL Sensation Assessment Sensation Gross Sensation WNL Muscle Tone Muscle Tone WNL Yes M6 PT-IP Treatment Start: 06/15/20 15:13 Freq: NEEDED Status: Discharge Protocol: Document 06/16/20 09:20 AB (Rec: 06/16/20 11:39 AB [email or web address]) Physical Therapy Treatment Education Education Provided Safety M7 PT-IP Assessment and Plan Start: 06/15/20 15:13 Freq: NEEDED Status: Discharge Protocol: Document 06/16/20 09:20 AB (Rec: 06/16/20 11:39 AB [id number]) PT Summary Assessment and Plan Potential Rehabilitation Potential Good Summary Impairments Pain,ROM,Strength,Balance, Coordination,Sensation,Tone, Cognition,Bed Mobility, Transfers,Gait,Activity Tolerance Progress Towards Goals Progressing Toward Goals Assessment Summary pt requiring SBA with mobility using FWW for ambulation; CGA for stair climbing for safety . pt plans to go home with spouse to assist and may go home when medically stable . Goals Bed Mobility Goal Independent Transfer Goal Independent,Front Wheeled Walker Gait Goal Independent,Front Wheel Walker Gait Distance 150 Other Goals up/down 5 steps R rail + cane SBA Days to Meet Goals 5 Frequency of Treatment Frequency Of Treatment Twice a Day Treatment Plan Physical Therapy Treatment Plan Bed Mobility Training,Transfer Training,Gait Training, Therapeutic Exercise,Balance Retraining,Post Op Education, Discharge Planning,Hot or Cold Pack,Neuromuscular Re-ed, Coordination Retraining,Manual Therapy Recommendations To Nursing Amount of Assist Needed 1 Person Assist Discharge Recommendations PT Discharge Recommendations Home with Assistance, Outpatient PT Transportation Needs at Discharge Private Vehicle
--- NOTE | 2020-06-16 10:45 | PC.NURSE ---
Pt feels ready to d/c home. Seen by PT and has received their instructions. Seen by Dr. Macario this am and got her instructions. Hemovac removed intact. Sm dry gauze dressing applied. He was instructed to remove this dressing at 48hrs. Leave aquacel dressing in place, may shower with same, it will be removed at his next office visit. Wound instructions given. Pt is voiding w/out diff. Tolerates diet w/out diff. Follows total knee precautions. Trial of oxycodone this am and he reports the medication has been effective for pain. Reviewed d/c packet, rx given. Questions answered. Spouse here at time of teaching. Pt reported no concerns at time of d/c. Pt d/c home via auto w/spouse.
--- NOTE | 2020-06-16 11:04 | CM.DANOTE ---
Patient is a 79 year old male who was admitted on 06/15/20 for LTKA. Pt has [facility] for insurance and his PCP is Dr. Eugenio Temple. EMR was reviewed. Per Ortho MD and PA, pt tolerated procedure well and stable for d/c home today after further PT and no barriers to discharge identified. Per RN, no concerns at this time. Per PT, recommending home with outpt PT at discharge. SW met briefly bedside with pt and explained role just as PT was working with pt. Pt confirms that he lives at home in [place] with his spouse and is quite independent and active at baseline and uses a cane for long distances otherwise no DME needed. Spouse is available for assist at d/c and can provide transport home. Pt denies any hx of HH or SNF and drives. Pt does not anticipate any SW needs at d/c and preference is home via spouse today and pt has plans for outpt PT. Plan: Patient to d/c home today via spouse POV and outpt PT and no SW needs at this time. NISA Gottlieb Discharge Planning/Care Management CM Discharge Assessment Start: 06/16/20 11:03 Freq: Status: Active Protocol: Document 06/16/20 11:03 BF (Rec: 06/16/20 11:04 [id number]) Discharge Planning Assessment Assigned Hadoop Analyst NISA Meneses DPOA/Assigned Designee Name spouse Brenda Advance Directives? Yes Advance Directives on File No History Provided By Patient,Medical Record Has Patient been admitted in last 30 No days? Prior Living Arrangements House Household Members spouse Type of transporation used prior to Drives own vehicle admit Independent with ADL's Yes Is patient alert and oriented? Yes Caregiver for Another No DME Already Rented / Owned Cane Patient/Family Preference OP PT Therapy Barriers to Discharge No Discharge Plan Home Community Services Physical Therapy Transportation Arrangement Spouse available to transport at d/c today Referrals Initiated None needed Whiteboard Updated in Patient Room with Yes name and ext. # of Hadoop Analyst Review Status In Process Please Provide Date Initial DC 06/16/20 Assessment Was Performed Next Review Type Continued Stay Review Pre-Anesthesia Assessment Start: 06/09/20 12:57 Freq: Status: Complete Protocol: Document 06/09/20 12:57 CAB (Rec: 06/09/20 14:58 CAB [id number]) Pre-Anesthesia Assessment Preferred Name Margarito Yun Patient Information Reviewed Via Phone Assessment Assessment Completed With Patient Diagnostic Results BMP/CMP,CBC,EKG,Urinalysis Comment Labs/EKG @ , COVID screen @ 06/12/20 Primary Care Provider Eugenio Temple Seen Specialist in Last 12 Months Yes Specialist Seen Orthopedist Primary Language Indonesian Filler Wiper Required No Height 154.94 cm Weight 71.668 kg Body Mass Index (BMI) 29.8 Hearing Ability Hard of Hearing,Use of Hearing Aid Visual Assist Glasses Dentition Type Teeth, Natural Present Barriers to Learning None Hx Anesthesia Reactions No Hx Family Anesthesia Reaction Yes: Sister woke up during knee surgery Hx Malignant Hyperthermia No Hx Blood Transfusions No Anesthesia Review Requested No alcohol intake current alcohol intake frequency a few times a week Smoking Status Never smoker Substance Use Type does not use Pain Present Pain Reported Musculoskeletal Symptoms Abnormal Gait,Difficulty Walking,Joint Pain,Neck Pain History of Falling (Recent or History of No ) Patient is completely paralyzed or No completely immobile Prosthesis or Orthotic Device Cane Mental Status Oriented to own ability Is patient on oxygen? No Does patient have REA/SOB No Hx Sleep Apnea No Currently Taking a Beta Zora No Can You Climb a Flight of Stairs Without Yes SOB Hx Chest Pain No Hx SOB No Hx Syncope or Dizziness No Anti-Coagulant Therapy Yes: Xarelto-advised to hold 2 days prior per Cardiology Has a Fishing Worker Yes: Dr. Dodd-last visit Cardiac Testing Echo @ 03/19/19 EF 65-70% Hx Pacemaker/ICD No Pacemaker Rep Required? No Cardiac Clearance Received Yes Comment Active with rowing, stationary bicycle 35 minutes up to 5x/ week Additional comment Clearance within visit 03/30/20 , cardiac records scanned Diet Type At Home Regular dysphagia No Gastrointestinal Symptoms Reflux Bladder Pattern Frequency,Nocturia,Urgency Urinary Catheter Present No Hx Urinary Self Catheterization No Diabetes No HgbA1C 6.1 Date 04/19/20 Presence of External or Internal Medical Yes: Nicho eye lens Devices Have you had any close contact with No someone diagnosed with COVID-19? Marital Status Lives With spouse Prior Living Arrangements House Number of Floors (Floors) One Floor Support System Spouse Does the Patient Have Assistance After Yes Surgery Patient Discharge Plan Description Return Home Comment Pt advised 1-2 night length of stay per surgeon Feels Safe in Current Environment Yes Been Physically Hurt or Threatened By a No Person in Current Environment Do you have thoughts of harming yourself None or others? Are you currently considering suicide? No Do you have a plan to hurt yourself or No Plan others? Do You Have Any Spiritual Beliefs That No May Affect Your HC Choices? Do You Have Any Cultural Practices That No May Affect Your HC Choices? Who Can We Speak to About Patient's Care only Identifying Code for Release of Patient Declines to issue Information Health Care Proxy/Next of Kin Cathy () Health Care Proxy Emergency Contact Name Cathy () Emergency Contact Advance Directives? Yes Advance Directives on File No Requested Patient Bring Advanced Yes Directives DOS Power of Captain/Airline Pilot Yes Power of Captain/Airline Pilot Name Cathy () Power of Captain/Airline Pilot PAC Instructions Durable medical equipment, Medications to take/avoid, Nasal antibiotic,No ETOH/ petroleum product on skin DOS, NPO,Pre-op antibiotic,Sturdy shoes/comfortable clothes,Do not bring valuables and remove jewelry
== END 2020-06-16 10:50 | disposition home or self-care (01) ==
LOC: OR 06:20 → AC 06:20
PROVIDERS: PCP Internal Medicine; Referring Provider Internal Medicine; Visit Provider Orthopaedic Surgery
PROC: 0SRD0JZ Replacement of Left Knee Joint with Synthetic Substitute, Open Approach (ICD-10-PCS; CPT 27447; principal; 2020-06-15 07:45)
DX: M17.12 Unilateral primary osteoarthritis, left knee (principal); I48.91 Unspecified atrial fibrillation; K21.9 Gastro-esophageal reflux disease without esophagitis; I10 Essential (primary) hypertension; E78.5 Hyperlipidemia, unspecified; G47.30 Sleep apnea, unspecified
CPT/HCPCS: 27447; 36415; 73560; 85014; 85018; 97116; 97161; 97530; C1776; C9290; J0690; J1100; J2250; J2405; J2704; J3010

== ENCOUNTER → 2020-08-16 12:56 | Outpatient (CLI) | payer OTHER, SELFPAY ==
[2020-06-15 11:55] VITALS: BMI 29.3
--- NOTE | 2020-08-16 | DI.MRI.S_ITS ---
PROCEDURE: MR CERVICAL SPINE WO CON INDICATIONS: Spinal stenosis, cervical region TECHNIQUE: Noncontrast sagittal T1 spin echo and T2 fast spin echo, sagittal STIR, foraminal oblique sagittal T2 fast spin echo, and axial gradient echo or T2 fast spin echo through the cervical spine. COMPARISON: [facility], JESUS, XR CERVICAL SPINE 2 OR 3 VIEWS, 08/10/2020, 8:45. [facility], CR, SPINE CERVICAL 2 OR 3VW, 07/28/2015, 14:53. [facility], MR, C-SPINE WITHOUT CONTRAST, 06/10/2015, 13:36. FINDINGS: Image quality: Excellent. Alignment and Curvature: There is trace C3-C4 and C4-C5 retrolisthesis. There is mild C 7-T1 anterolisthesis. Bone Marrow: Reactive endplate changes noted adjacent to the C2-C3, C3-C4, C4-C5, C5-C6, C6-C7 and C7-T1 discs. Spinal Cord: Visualized spinal cord has normal size and signal. No cerebellar tonsillar herniation. Paraspinous Soft Tissues: No paravertebral masses. Prevertebral soft tissues are normal in thickness. Mucosal thickening noted in the visualized portion of the right maxillary sinus. C2-C3: Loss of disc signal and height. Mild, diffuse disc bulge. No central stenosis. Mild right and moderate left facet hypertrophy. Mild right and severe left neural foraminal narrowing with compression of the exiting left C3 nerve root. C3-C4: Loss of disc signal and height. Moderate, diffuse disc bulge. Mild right and moderate left facet hypertrophy. Mild bilateral uncovertebral joint hypertrophy. Moderate narrowing of the central canal. Severe bilateral neural foraminal narrowing with compression of the exiting C4 nerve roots. C4-C5: Loss of disc signal and height. Mild, diffuse disc bulge. Moderate bilateral facet hypertrophy. Moderate bilateral uncovertebral joint hypertrophy. Severe narrowing of the central canal with slight compression of the cervical spinal cord. Severe bilateral neural foraminal narrowing with compression of the exiting bilateral C5 nerve roots. C5-C6: Loss of disc signal and height. Mild, diffuse disc bulge. Moderate bilateral facet hypertrophy. Moderate bilateral uncovertebral joint hypertrophy. Moderate to severe narrowing of the central canal. Severe bilateral neural foraminal narrowing with compression of the exiting C6 nerve roots. C6-C7: Loss of disc signal and height. Moderate, diffuse disc bulge. Severe right moderate left facet hypertrophy. Mild right and moderate left uncovertebral joint hypertrophy. Severe narrowing of the central canal with slight compression of the cervical spinal cord. Severe bilateral neural foraminal narrowing with compression of the exiting C7 nerve roots. C7-T1: Loss of disc signal and height. Minimal, diffuse disc bulge. Moderate bilateral facet hypertrophy. Mild narrowing of the central canal. Mild bilateral neural foraminal narrowing. No neural compression. IMPRESSION: 1. Multilevel degenerative disc disease. 2. Multilevel facet arthropathy. 3. Severe C4-C5 and C6-C7 central canal narrowing with slight compression of the cervical spinal cord. 4. Severe bilateral C3-C4, C4-C5, C5-C6 and C6-C7 neural foraminal narrowing with compression of the exiting bilateral C4, C5, C6 and C7 nerve roots. Severe left C2-C3 neural foraminal narrowing with compression of the exiting left C3 nerve root. Dictated by: Polina Wooten MD, PhD on 08/16/2020 at 16:04 Approved by: Polina Wooten MD, PhD on 08/16/2020 at 16:24
== END ==
PROVIDERS: PCP Internal Medicine; Referring Provider Orthopaedic Surgery Orthopaedic Surgery of the Spine; Visit Provider Orthopaedic Surgery Orthopaedic Surgery of the Spine
DX: M48.02 Spinal stenosis, cervical region (principal); M47.812 Spondylosis without myelopathy or radiculopathy, cervical region; M50.31 Other cervical disc degeneration, high cervical region
CPT/HCPCS: 72141

== ENCOUNTER → 2020-09-03 07:38 | Outpatient (CLI) | payer OTHER, SELFPAY ==
[2020-06-15 11:55] VITALS: BMI 29.3
[2020-09-03 08:43] LABS: Add Manual Diff / Slide Review NO; Basophils Absolute Auto 0 /uL (0-100); Basophils Percent Auto 0.4 % (0-2); Eosinophils Absolute Auto 100 /uL (0-450); Eosinophils Percent Auto 1.8 % (2-4); Hematocrit 41.6 % (41-53); Hemoglobin 13.5 g/dL (13.5-17.5); Lymphocytes Absolute Auto 2500 /uL (1100-4500); Lymphocytes Percent Auto 37.2 % (25-40); Mean Corpuscular HGB Conc 32.5 % (30-36); Mean Corpuscular Hemoglobin 29.3 PG (26-34); Mean Corpuscular Volume 90.4 fL (80-100); Monocytes Absolute Auto 400 /uL (0-900); Monocytes Percent Auto 6.1 % (3-14); Neutrophils Absolute Auto 3600 /uL (1500-7000); Neutrophils Percent Auto 54.5 % (50-75); Platelet Count 200 X10^3/uL (150-400); Red Blood Cell Count 4.61 X10^6/uL (4.5-5.9); White Blood Cell Count 6.6 X10^3/uL (4.5-11.0)
[2020-09-03 09:02] LABS: Alanine Aminotransferase 15 IU/L (<50); Albumin 4.1 g/dL (3.5-5.0); Albumin Globulin Ratio 1.5 (1.0-2.8); Alkaline Phosphatase 74 U/L (38-126); Aspartate Aminotransferase 26 IU/L (17-59); BUN Creatinine Ratio 14.8 (6-22); Bilirubin Total 0.7 mg/dL (0.2-1.3); Blood Urea Nitrogen 8 mg/dL (9-20); Calcium 9.7 mg/dL (8.4-10.2); Carbon Dioxide 30 mmol/L (22-32); Chloride 103 mmol/L (98-107); Cholesterol 135 mg/dL (140-199); Estimated Glomerular Filt Rate > 60.0 mL/min (>60); Globulin 2.7 g/dL (1.7-4.1); Glucose 113 mg/dL (80-110); HDL Cholesterol 48 mg/dL (40-60); HEMOLYSIS < 15 (0-50); LDL Cholesterol Calculated 73 mg/dL (<100); Potassium 3.9 mmol/L (3.4-5.1); Sodium 138 mmol/L (137-145); Total Protein 6.8 g/dL (6.3-8.2); Triglycerides 70 mg/dL (35-150)
== END ==
PROVIDERS: PCP Internal Medicine; Referring Provider Internal Medicine Cardiovascular Disease; Visit Provider Internal Medicine
DX: I10 Essential (primary) hypertension (principal); I48.20 Chronic atrial fibrillation, unspecified; E78.2 Mixed hyperlipidemia
CPT/HCPCS: 36415; 80053; 80061; 85025

== ENCOUNTER → 2021-01-03 17:30 | Outpatient (CLI) | payer OTHER, SELFPAY ==
[2020-06-15 11:55] VITALS: BMI 29.3
== END ==
PROVIDERS: PCP Internal Medicine; Referring Provider Physician Assistant; Visit Provider Physician Assistant
DX: N34.3 Urethral syndrome, unspecified (principal)
CPT/HCPCS: 87086

== ENCOUNTER → 2021-01-17 13:59 | Outpatient (CLI) | payer OTHER, SELFPAY ==
[2020-06-15 11:55] VITALS: BMI 29.3
== END ==
PROVIDERS: PCP Internal Medicine; Visit Provider Physician Assistant
DX: R31.9 Hematuria, unspecified (principal)
CPT/HCPCS: 87086

== ENCOUNTER → 2021-01-17 14:53 | Outpatient (CLI) | payer OTHER, SELFPAY ==
[2020-06-15 11:55] VITALS: BMI 29.3
[2021-01-17 15:27] LABS: Add Manual Diff / Slide Review NO; Basophils Absolute Auto 0 /uL (0-100); Basophils Percent Auto 0.3 % (0-2); Eosinophils Absolute Auto 100 /uL (0-450); Eosinophils Percent Auto 1.9 % (2-4); Hematocrit 38.8 % (41-53); Hemoglobin 13.1 g/dL (13.5-17.5); Lymphocytes Absolute Auto 2300 /uL (1100-4500); Lymphocytes Percent Auto 37.6 % (25-40); Mean Corpuscular HGB Conc 33.6 % (30-36); Mean Corpuscular Hemoglobin 30.6 PG (26-34); Mean Corpuscular Volume 91.1 fL (80-100); Monocytes Absolute Auto 400 /uL (0-900); Monocytes Percent Auto 6.4 % (3-14); Neutrophils Absolute Auto 3200 /uL (1500-7000); Neutrophils Percent Auto 53.8 % (50-75); Platelet Count 187 X10^3/uL (150-400); Red Blood Cell Count 4.26 X10^6/uL (4.5-5.9); Red Cell Distribution Width 13.5 % (11.6-14.8)
[2021-01-17 15:37] LABS: Alanine Aminotransferase 23 IU/L (<50); Albumin 4.3 g/dL (3.5-5.0); Albumin Globulin Ratio 1.4 (1.0-2.8); Alkaline Phosphatase 66 U/L (38-126); Aspartate Aminotransferase 38 IU/L (17-59); Bilirubin Total 0.7 mg/dL (0.2-1.3); Blood Urea Nitrogen 9 mg/dL (9-20); Calcium 9.4 mg/dL (8.4-10.2); Carbon Dioxide 25 mmol/L (22-32); Chloride 105 mmol/L (98-107); Estimated Glomerular Filt Rate > 60.0 mL/min (>60); Glucose 95 mg/dL (80-110); HEMOLYSIS < 15 (0-50); Potassium 4.6 mmol/L (3.4-5.1); Sodium 137 mmol/L (137-145); Total Protein 7.3 g/dL (6.3-8.2)
== END ==
PROVIDERS: PCP Internal Medicine; Referring Provider Physician Assistant; Visit Provider Physician Assistant
DX: R31.9 Hematuria, unspecified (principal)
CPT/HCPCS: 36415; 80053; 85025; 87086

== ENCOUNTER → 2021-01-28 11:42 | Outpatient (CLI) | payer OTHER, SELFPAY ==
[2020-06-15 11:55] VITALS: BMI 29.3
== END ==
PROVIDERS: PCP Internal Medicine; Visit Provider Urology
DX: N39.0 Urinary tract infection, site not specified (principal); R31.0 Gross hematuria; R97.20 Elevated prostate specific antigen [PSA]; N42.9 Disorder of prostate, unspecified; N43.3 Hydrocele, unspecified; Z98.890 Other specified postprocedural states; Z90.49 Acquired absence of other specified parts of digestive tract; Z79.01 Long term (current) use of anticoagulants
CPT/HCPCS: 81002; 87086; 99215

== ENCOUNTER → 2021-02-03 07:03 | Outpatient (CLI) | payer OTHER, SELFPAY ==
[2020-06-15 11:55] VITALS: BMI 29.3
[2021-02-03 09:07] LABS: BUN Creatinine Ratio 23.5 (6-22); Blood Urea Nitrogen 12 mg/dL (9-20); Calcium 9.4 mg/dL (8.4-10.2); Carbon Dioxide 28 mmol/L (22-32); Chloride 105 mmol/L (98-107); Estimated Glomerular Filt Rate > 60.0 mL/min (>60); Glucose 104 mg/dL (80-110); HEMOLYSIS < 15 (0-50); Potassium 4.4 mmol/L (3.4-5.1); Sodium 139 mmol/L (137-145)
== END ==
PROVIDERS: PCP Internal Medicine; Referring Provider Urology; Visit Provider Urology
DX: R31.0 Gross hematuria (principal); N42.9 Disorder of prostate, unspecified; R97.20 Elevated prostate specific antigen [PSA]
CPT/HCPCS: 36415; 80048; 84153; 84154

== ENCOUNTER → 2021-02-09 11:25 | Outpatient (CLI) | payer OTHER, SELFPAY ==
[2020-06-15 11:55] VITALS: BMI 29.3
--- NOTE | 2021-02-09 11:37 | DI.CT.S_ITS ---
PROCEDURE: CT ABDOMEN PELVIS WO/W CON INDICATIONS: Gross hematuria chronic anticoagulation TECHNIQUE: Optional 5 mm thick noncontrast images acquired from the diaphragm to the symphysis pubis. After the administration of intravenous contrast, 5 mm thick images acquired from the diaphragm to the symphysis pubis after a 10-minute delay. 2 mm thick coronal and sagittal reformats were then performed of the kidneys and ureters. For radiation dose reduction, the following was used: automated exposure control, adjustment of mA and/or kV according to patient size. COMPARISON: None. FINDINGS: Image quality: Excellent. Lung bases: Lung bases are clear. Cardiomegaly. Urinary system: Both kidneys are normal in size, without hydronephrosis. Tiny nonobstructing bilateral renal stones. No perinephric fat stranding. There is normal bilateral renal enhancement. Renal calyces appear normal in morphology when filled with contrast. Large exophytic left renal cyst measuring approximately 6 cm. Opacified portions of both ureters demonstrate normal caliber. Marked prostate enlargement. Diffuse bladder wall thickening consistent with bladder outlet obstruction. No suspicious bladder filling defects. No bladder stones. Right base of bladder diverticulum. Other solid organs: Small benign-appearing liver lesions.. Gallbladder is unremarkable . Biliary system is non dilated. Pancreas enhances normally. Spleen is normal in size and enhancement. No adrenal nodules. Peritoneum and bowel: Bowel loops demonstrate normal wall thickness and caliber. No free fluid or air. Nodes and vessels: No retroperitoneal or mesenteric adenopathy by size criteria. Aorta and inferior vena cava are normal in size. Abdominal wall: No ventral hernias. Pelvis: No pathologic free pelvic fluid. No inguinal hernias or adenopathy. Bones: No suspicious bony lesions. No vertebral body compression fractures. IMPRESSION: 1. Small bilateral nonobstructing renal stones. No renal mass, ureteral stone, hydronephrosis, or hydroureter. 2. Marked enlargement of the prostate with diffuse bladder wall thickening and a right base of bladder diverticulum consistent with sequelae of bladder outlet obstruction. Dictated by: Andrés Giles M.D. on 02/09/2021 at 14:12 Approved by: Andrés Giles M.D. on 02/09/2021 at 14:18
== END ==
PROVIDERS: PCP Internal Medicine; Referring Provider Urology; Visit Provider Specialist
DX: R31.0 Gross hematuria (principal); N20.0 Calculus of kidney; N40.0 Benign prostatic hyperplasia without lower urinary tract symptoms; N32.3 Diverticulum of bladder; Z79.01 Long term (current) use of anticoagulants
CPT/HCPCS: 74178

== ENCOUNTER → 2021-02-17 12:47 | Outpatient (CLI) | payer OTHER, SELFPAY ==
[2020-06-15 11:55] VITALS: BMI 29.3
[2021-02-17 12:49] LABS: Appearance Urine UA CLOUDY; Bilirubin Urine UA NEGATIVE (NEGATIVE); Glucose Urine UA NEGATIVE (Negative); Ketones Urine UA NEGATIVE (NEGATIVE); Leukocyte Esterase Urine UA TRACE (NEGATIVE); Nitrite Urine UA NEGATIVE (Negative); Occult Blood Urine UA 3+ (Negative); Protein Urine UA 2+ (Negative); Urobilinogen Urine UA 0.2 E.U./dL (0.2); pH Urine UA 6.5 (4.5-8.0)
[2021-02-17 12:58] LABS: Bacteria Urine Few (2-10); Culture Indicated Urine Specimen Cultured; RBC Urine >100/HPF (0-5/HPF); Squamous Epithelial Cell Urine 1-5 /HPF (0-5/HPF); WBC Urine 1-5/HPF (0-5/HPF)
== END ==
PROVIDERS: PCP Internal Medicine; Visit Provider Urology
DX: R31.0 Gross hematuria (principal); R97.20 Elevated prostate specific antigen [PSA]; Z68.29 Body mass index [BMI] 29.0-29.9, adult
CPT/HCPCS: 52000; 81001; 87086; 99214

== ENCOUNTER → 2021-03-08 09:02 | Outpatient (CLI) | payer OTHER, SELFPAY ==
[2020-06-15 11:55] VITALS: BMI 29.3
[2021-03-08 09:11] LABS: Bacteria Urine None Seen
[2021-03-08 12:45] LABS: Appearance Urine UA CLOUDY; Bilirubin Urine UA NEGATIVE (NEGATIVE); Color Urine UA YELLOW; Glucose Urine UA NEGATIVE (Negative); Ketones Urine UA TRACE (NEGATIVE); Leukocyte Esterase Urine UA TRACE (NEGATIVE); Nitrite Urine UA NEGATIVE (Negative); Occult Blood Urine UA 3+ (Negative); Protein Urine UA 1+ (Negative); Specific Gravity Urine UA 1.015 (1.000-1.035); Urobilinogen Urine UA 0.2 E.U./dL (0.2)
[2021-03-08 12:50] LABS: RBC Urine >100/HPF (0-5/HPF); WBC Urine 5-10/HPF (0-5/HPF)
[2021-03-08 12:51] LABS: Culture Indicated Urine Specimen Cultured
== END ==
PROVIDERS: PCP Internal Medicine; Referring Provider Urology; Visit Provider Urology
DX: R31.0 Gross hematuria (principal)
CPT/HCPCS: 81001; 87086

== ENCOUNTER → 2021-03-21 07:03 | Outpatient (CLI) | payer OTHER, SELFPAY ==
[2020-06-15 11:55] VITALS: BMI 29.3
[2021-03-21 07:15] LABS: Bacteria Urine None Seen; WBC Urine None Seen (0-5/HPF)
[2021-03-21 08:17] LABS: Appearance Urine UA CLEAR; Bilirubin Urine UA NEGATIVE (NEGATIVE); Color Urine UA YELLOW; Glucose Urine UA TRACE g/dL (Negative); Ketones Urine UA NEGATIVE (NEGATIVE); Leukocyte Esterase Urine UA NEGATIVE (NEGATIVE); Nitrite Urine UA NEGATIVE (Negative); Occult Blood Urine UA 3+ (Negative); Protein Urine UA TRACE (Negative); Urobilinogen Urine UA 0.2 E.U./dL (0.2); pH Urine UA 6.5 (4.5-8.0)
[2021-03-21 08:26] LABS: Culture Indicated Urine Cult Not Indicated; RBC Urine 10-30/HPF (0-5/HPF)
[2021-03-21 08:27] LABS: Add Manual Diff / Slide Review NO; Basophils Absolute Auto 0 /uL (0-100); Basophils Percent Auto 0.1 % (0-2); Eosinophils Absolute Auto 100 /uL (0-450); Eosinophils Percent Auto 2.5 % (2-4); Hematocrit 40.7 % (41-53); Hemoglobin 13.7 g/dL (13.5-17.5); Lymphocytes Absolute Auto 1900 /uL (1100-4500); Lymphocytes Percent Auto 38.2 % (25-40); Mean Corpuscular HGB Conc 33.5 % (30-36); Mean Corpuscular Hemoglobin 30.9 PG (26-34); Mean Corpuscular Volume 92.2 fL (80-100); Monocytes Absolute Auto 300 /uL (0-900); Monocytes Percent Auto 6.8 % (3-14); Neutrophils Absolute Auto 2600 /uL (1500-7000); Neutrophils Percent Auto 52.4 % (50-75); Platelet Count 176 X10^3/uL (150-400); Red Blood Cell Count 4.42 X10^6/uL (4.5-5.9); White Blood Cell Count 4.9 X10^3/uL (4.5-11.0)
[2021-03-21 08:53] LABS: Alanine Aminotransferase 29 IU/L (<50); Albumin Globulin Ratio 1.3 (1.0-2.8); Alkaline Phosphatase 61 U/L (38-126); Aspartate Aminotransferase 44 IU/L (17-59); BUN Creatinine Ratio 15.3 (6-22); Bilirubin Total 0.7 mg/dL (0.2-1.3); Blood Urea Nitrogen 9 mg/dL (9-20); Calcium 9.4 mg/dL (8.4-10.2); Carbon Dioxide 31 mmol/L (22-32); Chloride 102 mmol/L (98-107); Cholesterol 121 mg/dL (140-199); Estimated Glomerular Filt Rate > 60.0 mL/min (>60); Globulin 3.1 g/dL (1.7-4.1); Glucose 114 mg/dL (80-110); HDL Cholesterol 48 mg/dL (40-60); HEMOLYSIS < 15 (0-50); LDL Cholesterol Calculated 63 mg/dL (<100); Potassium 4.2 mmol/L (3.4-5.1); Sodium 138 mmol/L (137-145); Total Protein 7.1 g/dL (6.3-8.2); Triglycerides 50 mg/dL (35-150)
[2021-03-22 08:40] LABS: PSA Free % 17.1 % (.); PSA, Total 8.5 ng/mL (0.0-4.0)
== END ==
PROVIDERS: Urology; PCP Internal Medicine; Referring Provider Internal Medicine Cardiovascular Disease; Visit Provider Internal Medicine Cardiovascular Disease
DX: R97.20 Elevated prostate specific antigen [PSA] (principal); I48.20 Chronic atrial fibrillation, unspecified; I10 Essential (primary) hypertension; R31.0 Gross hematuria; E78.2 Mixed hyperlipidemia
CPT/HCPCS: 36415; 80053; 80061; 81001; 84153; 84154; 85025

== ENCOUNTER → 2021-04-27 07:43 | Outpatient (CLI) | payer OTHER, SELFPAY ==
[2020-06-15 11:55] VITALS: BMI 29.3
== END ==
PROVIDERS: PCP Internal Medicine; Referring Provider Specialist; Visit Provider Specialist
DX: N42.9 Disorder of prostate, unspecified (principal); R97.20 Elevated prostate specific antigen [PSA]
CPT/HCPCS: 36415; 84153

== ENCOUNTER → 2021-05-03 13:43 | Outpatient (CLI) | payer OTHER, SELFPAY ==
[2020-06-15 11:55] VITALS: BMI 29.3
--- NOTE | 2021-05-03 13:45 | DI.RAD.S_ITS ---
PROCEDURE: XR KUB INDICATIONS: Follow kidney stones TECHNIQUE: One view of the abdomen acquired. COMPARISON: [facility], CT, CT ABDOMEN PELVIS WO/W CON, 02/09/2021, 11:50. FINDINGS: Surgical changes and devices: None. Bowel: Bowel gas pattern is nonobstructive. Prominent stool is present. Soft tissues: Multiple bilateral punctate renal calcifications are identified on CT of 02/09/2021. These are not clearly identified on current exam. The left kidney is particularly obscured by overlying stool.. Visualized solid organ contours appear normal in size. Bones: No suspicious bony lesions. IMPRESSION: Nonvisualized previous renal calcifications as above. Significant stool consistent with constipation. Dictated by: Roberta Marie M.D. on 05/03/2021 at 16:54 Approved by: Roberta Marie M.D. on 05/03/2021 at 16:55
== END ==
PROVIDERS: PCP Internal Medicine; Referring Provider Urology; Visit Provider Urology
DX: N28.89 Other specified disorders of kidney and ureter (principal); R97.20 Elevated prostate specific antigen [PSA]; R31.0 Gross hematuria; Z79.01 Long term (current) use of anticoagulants; Z98.890 Other specified postprocedural states; Z90.79 Acquired absence of other genital organ(s)
CPT/HCPCS: 74018; 81002; 99213

== ENCOUNTER → 2021-05-24 07:52 | Outpatient (CLI) | payer OTHER, SELFPAY ==
[2020-06-15 11:55] VITALS: BMI 29.3
--- NOTE | 2021-05-24 | DI.ECHO.S_ITS ---
[place] +---------+ [facility] +---------+ : : [address] : : : : [id number] : : : : Phone: [phone]---------+ Echocardiogram Report + + :Name: MELLY STANTON Study Date: 05/24/2021 Height: 61 in : :[facility] ReadingLocation: Weight: 158 lb : : Gender: Male BSA: 1.7 m2 : :: 1940 Age: 80 yrs BP: 134/81 mmHg: :Reason For Study: TRICUSPID REGURGITATION : :Ordering Physician: FRANCESCO, : :JIM Performed By: nAita Ureña : :Referring: JIM MAYA : + + Interpretation Summary The left ventricle is normal in size. The ejection fraction is estimated to be 60-65%. No significant change in LVEF from the previous study. The right ventricle is mildly dilated. Right ventricular systolic function is at the lower limits of normal. 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 There is trace mitral regurgitation. No significant mitral stenosis. There is mild aortic regurgitation. Compared to the prior echo study, there has been no change in the severity of aortic regurgitation. There is moderate tricuspid regurgitation. Compared to the prior echo exam, there has been no change in TR severity. The right ventricular systolic pressure is estimated to be at least 30.5 mmHg based on an estimated right atrial pressure of 8 mm Hg. Procedure: A two-dimensional transthoracic echocardiogram with color flow and Doppler was performed. The study quality was technically adequate. Comparison is made with the echocardiogram of 03/19/2019. The patient was in atrial fibrillation with heart rates between 55-67 bpm during the exam. Left Ventricle: The left ventricle is normal in size. Proximal septal thickening is noted. There is no echo evidence for significant left ventricular outflow tract obstruction. There is no thrombus. The ejection fraction is estimated to be 60-65%. There are no focal wall motion abnormalities. E/E' med: 28. Right Ventricle: The right ventricle is mildly dilated. Right ventricular systolic function is at the lower limits of normal. Atria: The left atrium is severely dilated. The left atrium has remained unchanged in size since the prior echo exam. The right atrium is mild to moderately dilated. There is no Doppler evidence for an interatrial shunt. Mitral Valve: There is mild to moderate mitral annular calcification. Mild to moderately thickened anterior mitral leaflet. 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 No significant mitral valve stenosis. There is trace mitral regurgitation. Aortic Valve: There is mild aortic valve sclerosis. The aortic valve is trileaflet. The aortic valve opens well. There is no aortic valve stenosis. There is mild aortic regurgitation. Compared to the prior echo study, there has been no change in the severity of aortic regurgitation. Tricuspid Valve: The tricuspid valve leaflets are thin and pliable. There is moderate tricuspid regurgitation. The right ventricular systolic pressure is estimated to be at least 30.5 mmHg based on an estimated right atrial pressure of 8 mm Hg. Compared to the prior echo exam, there has been no change in TR severity. Pulmonic Valve: The pulmonic valve is not well visualized. There is no pulmonic valvular regurgitation. Great Vessels: The aortic root is normal size. The ascending aorta is at the upper limits of normal in size. The IVC is of normal diameter and collapses less than 50% with a sniff. This suggests a right atrial pressure of 8 mm Hg. Pericardium/ Pleura There is no pericardial effusion. There is no pleural effusion. MMode/2D Measurements & Calculations LVIDd: 5.3 cm LVOT diam: 2.2 cm LVIDs: 3.2 cm Ao root diam: 3.8 cm FS: 39.3 % asc Aorta Diam: 3.6 cm IVSd: 1.3 cm Ao Arch Diam (Prox Trans): 3.3 cm LVPWd: 1.1 cm LV avina. diameter/BSA (cm/m^2): 3.1 LV sys. diameter/BSA (cm/m^2): 1.9 LA A2 area: 33.3 cm2 RA long axis: 5.9 cm LA A4 area: 33.2 cm2 RA area: 25.3 cm2 LA length (vol): 7.1 cm RA vol: 92.7 ml LA vol: 131.3 ml RA : 54.2 ml/m2 LA vol index: 76.8 ml/m2 IVC diam: 2.4 cm RVD1 (basal): 5.1 cm TAPSE: 1.6 cm Doppler Measurements & Calculations Ao V2 max: 123.5 cm/sec LVOT Max Ricky: 88.6 cm/sec Ao V2 mean: 82.3 cm/sec LV V1 max P.1 mmHg Ao max P.1 mmHg LV V1 VTI: 18.4 cm Ao mean P.1 mmHg JESSIE(I,D): 3.0 cm2 Ao V2 VTI: 24.0 cm JESSIE(V,D): 2.8 cm2 sev ratio: 0.76 JESSIE indexed to BSA (cm^2/m^2): 1.7 AI P1/2t: 833.3 msec AI dec slope: 149.2 cm/sec2 MV E max ricky: 159.6 cm/sec TR max ricky: 236.7 cm/sec MV A max ricky: 2.2 cm/sec TR max P.5 mmHg MV E/A: 72.5 PA V2 max: 81.1 cm/sec Med Peak E' Ricky: 5.7 cm/sec PA V2 mean: 52.2 cm/sec E/E' med: 28.2 PA mean P.2 mmHg Lat Peak E' Ricky: 7.7 cm/sec PA pr(Accel): 46.5 mmHg E/E' lat: 20.6 E/e' average: 24.4 MV dec time: 0.29 sec MVA(VTI): 1.6 cm2 MV V2 mean: 81.9 cm/sec SV(LVOT): 71.6 ml MV mean P.6 mmHg MV V2 VTI: 43.9 cm Reading Physician:05:07 PM
== END ==
PROVIDERS: PCP Internal Medicine; Referring Provider Internal Medicine Cardiovascular Disease; Visit Provider Internal Medicine Cardiovascular Disease
DX: I08.2 Rheumatic disorders of both aortic and tricuspid valves (principal)
CPT/HCPCS: 93306

== ENCOUNTER → 2021-07-26 08:59 | Outpatient (CLI) | payer OTHER, SELFPAY ==
[2020-06-15 11:55] VITALS: BMI 29.3
--- NOTE | 2021-07-26 09:00 | DI.RAD.S_ITS ---
PROCEDURE: XR KUB INDICATIONS: Kidney stones TECHNIQUE: One view of the abdomen acquired. COMPARISON: [facility], CT, CT ABDOMEN PELVIS WO/W CON, 02/09/2021, 11:50. [facility], CR, XR KUB, 05/03/2021, 13:49. FINDINGS: Surgical changes and devices: None. Bowel: Bowel gas pattern is normal. Soft tissues: No kidney stones identified. On the prior CT from February 2021 there are punctate kidney stones. Phleboliths in the pelvis are similar to the prior exam. No suspicious abdominal calcifications. Visualized solid organ contours appear normal in size. Bones: No suspicious bony lesions. IMPRESSION: No kidney stones identified. Consider follow-up CT KUB to further evaluate the previously seen punctate kidney stones. Dictated by: Khang Mckenzie M.D. on 07/26/2021 at 10:05 Approved by: Khang Mckenzie M.D. on 07/26/2021 at 10:07
[2021-07-27 08:17] LABS: PSA Free % 14.6 % (.); PSA, Total 2.6 ng/mL (0.0-4.0)
== END ==
PROVIDERS: PCP Internal Medicine; Referring Provider Urology; Visit Provider Urology
DX: N28.89 Other specified disorders of kidney and ureter (principal); R97.20 Elevated prostate specific antigen [PSA]
CPT/HCPCS: 36415; 74018; 84153; 84154

== ENCOUNTER → 2022-01-05 13:37 | Outpatient (CLI) | payer OTHER, SELFPAY ==
[2020-06-15 11:55] VITALS: BMI 29.3
[2022-01-05 16:18] LABS: Appearance Urine UA CLEAR; Bilirubin Urine UA NEGATIVE (NEGATIVE); Color Urine UA YELLOW; Glucose Urine UA NEGATIVE (Negative); Ketones Urine UA NEGATIVE (NEGATIVE); Leukocyte Esterase Urine UA TRACE (NEGATIVE); Nitrite Urine UA NEGATIVE (Negative); Occult Blood Urine UA 3+ (Negative); Protein Urine UA NEGATIVE (Negative); Urobilinogen Urine UA 0.2 E.U./dL (0.2)
[2022-01-05 17:39] LABS: RBC Urine 10-30/HPF (0-5/HPF); Squamous Epithelial Cell Urine None Seen (0-5/HPF); WBC Urine 1-5/HPF (0-5/HPF)
[2022-01-05 17:40] LABS: Bacteria Urine Occasional (0-1); Culture Indicated Urine Specimen Cultured
== END ==
PROVIDERS: PCP Internal Medicine; Referring Provider Urology; Visit Provider Urology
DX: R30.0 Dysuria (principal)
CPT/HCPCS: 81001; 87086

== ENCOUNTER → 2022-03-21 11:09 | Outpatient (CLI) | payer OTHER, SELFPAY ==
[2020-06-15 11:55] VITALS: BMI 29.3
[2022-03-21 12:25] LABS: Alanine Aminotransferase 21 IU/L (<50); Albumin 4.3 g/dL (3.5-5.0); Albumin Globulin Ratio 1.5 (1.0-2.8); Alkaline Phosphatase 47 U/L (38-126); Aspartate Aminotransferase 31 IU/L (17-59); Bilirubin Total 0.7 mg/dL (0.2-1.3); Blood Urea Nitrogen 12 mg/dL (9-20); Calcium 9.3 mg/dL (8.4-10.2); Carbon Dioxide 26 mmol/L (22-32); Chloride 105 mmol/L (98-107); Cholesterol 129 mg/dL (140-199); Estimated Glomerular Filt Rate > 60 mL/min (>60); Globulin 2.9 g/dL (1.7-4.1); Glucose 101 mg/dL (80-110); HDL Cholesterol 47 mg/dL (40-60); HEMOLYSIS < 15 (0-50); LDL Cholesterol Calculated 67 mg/dL (<100); Potassium 3.9 mmol/L (3.4-5.1); Sodium 140 mmol/L (137-145); Total Protein 7.2 g/dL (6.3-8.2); Triglycerides 76 mg/dL (35-150)
== END ==
PROVIDERS: PCP Internal Medicine; Referring Provider Internal Medicine Cardiovascular Disease; Visit Provider Internal Medicine Cardiovascular Disease
DX: I10 Essential (primary) hypertension (principal)
CPT/HCPCS: 36415; 80053; 80061

== ENCOUNTER → 2022-08-01 10:33 | Outpatient (CLI) | payer OTHER, SELFPAY ==
[2020-06-15 11:55] VITALS: BMI 29.3
--- NOTE | 2022-08-01 10:35 | DI.RAD.S_ITS ---
PROCEDURE: XR KUB INDICATIONS: history of kidney stones TECHNIQUE: One view of the abdomen acquired. COMPARISON: [facility], CR, XR KUB, 05/03/2021, 13:49. [facility], CR, XR KUB, 07/26/2021, 9:07. FINDINGS: Surgical changes and devices: None. Bowel: Prominent stool in the colon. No dilated loops of small bowel identified. Soft tissues: No kidney stones identified. No suspicious abdominal calcifications. Visualized solid organ contours appear normal in size. Bones: No suspicious bony lesions. IMPRESSION: No kidney stones identified. Prominent stool in the colon. CT KUB could be considered for further evaluation. Dictated by: Khang Mckenzie M.D. on 08/01/2022 at 13:01 Approved by: Khang Mckenzie M.D. on 08/01/2022 at 13:04
[2022-08-03 14:32] LABS: PSA Free % 13.2 % (.); PSA, Total 2.8 ng/mL (0.0-4.0)
== END ==
PROVIDERS: Referring Provider Urology; Visit Provider Urology
DX: R97.20 Elevated prostate specific antigen [PSA] (principal); Z87.442 Personal history of urinary calculi
CPT/HCPCS: 36415; 74018; 84153; 84154

== ENCOUNTER → 2023-03-19 07:12 | Outpatient (CLI) | payer OTHER, SELFPAY ==
[2020-06-15 11:55] VITALS: BMI 29.3
[2023-03-19 09:07] LABS: Add Manual Diff / Slide Review NO; Basophils Absolute Auto 0 /uL (0-100); Basophils Percent Auto 0.2 % (0-2); Eosinophils Absolute Auto 100 /uL (0-450); Eosinophils Percent Auto 2.6 % (2-4); Hematocrit 39.5 % (41-53); Hemoglobin 13.4 g/dL (13.5-17.5); Lymphocytes Absolute Auto 2000 /uL (1100-4500); Lymphocytes Percent Auto 37.7 % (25-40); Monocytes Absolute Auto 500 /uL (0-900); Monocytes Percent Auto 8.5 % (3-14); Neutrophils Absolute Auto 2800 /uL (1500-7000); Platelet Count 162 X10^3/uL (150-400); Red Blood Cell Count 4.34 X10^6/uL (4.5-5.9); Red Cell Distribution Width 13.2 % (11.6-14.8); White Blood Cell Count 5.4 X10^3/uL (4.5-11.0)
[2023-03-19 09:25] LABS: Alanine Aminotransferase 27 IU/L (<50); Albumin 4.2 g/dL (3.5-5.0); Albumin Globulin Ratio 1.6 (1.0-2.8); Alkaline Phosphatase 50 U/L (38-126); Aspartate Aminotransferase 37 IU/L (17-59); Bilirubin Total 0.8 mg/dL (0.2-1.3); Blood Urea Nitrogen 9 mg/dL (9-20); Calcium 9.3 mg/dL (8.4-10.2); Carbon Dioxide 28 mmol/L (22-32); Chloride 104 mmol/L (98-107); Cholesterol 135 mg/dL (140-199); Estimated Glomerular Filt Rate > 60 mL/min (>60); Globulin 2.7 g/dL (1.7-4.1); Glucose 109 mg/dL (80-110); HDL Cholesterol 46 mg/dL (40-60); HEMOLYSIS < 15 (0-50); LDL Cholesterol Calculated 78 mg/dL (<100); Potassium 4.2 mmol/L (3.4-5.1); Sodium 139 mmol/L (137-145); Total Protein 6.9 g/dL (6.3-8.2); Triglycerides 55 mg/dL (35-150)
== END ==
PROVIDERS: PCP Physician Assistant; Referring Provider Internal Medicine Cardiovascular Disease; Visit Provider Internal Medicine Cardiovascular Disease
DX: E78.5 Hyperlipidemia, unspecified (principal); I10 Essential (primary) hypertension
CPT/HCPCS: 36415; 80053; 80061; 85025

== ENCOUNTER → 2023-03-21 07:57 | Outpatient (CLI) | payer OTHER, SELFPAY ==
[2020-06-15 11:55] VITALS: BMI 29.3
--- NOTE | 2023-03-21 | DI.ECHO.S_ITS ---
[place] +---------+ Hospital +---------+ : : [address] : [address] : : : : [id number] : : : : Phone: [phone]---------+ Echocardiogram Report + + :Name: MELLY STANTON Study Date: 03/21/2023 Height: 61 in : :[facility] ReadingLocation: Weight: 157 lb : : Gender: Male BSA: 1.7 m2 : :: 1940 Age: 82 yrs BP: 124/79 mmHg: :Reason For Study: MITRAL VALVE REPAIR : :Ordering Physician: FRANCESCO, : :JIM Performed By: Anita Ureña : :Referring: JIM MAYA : + + Interpretation Summary The left ventricle is normal in size. The left ventricular ejection fraction is normal. The ejection fraction is estimated to be 60-65%.E/E' med: 31.5. Previously 28 The right ventricle is normal size. The right ventricular systolic function is normal. There is mild to moderate mitral annular calcification. Mild to moderately thickened anterior mitral leaflet. 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 No significant mitral valve stenosis. Mean gradient about 4.6 mmHg suggestive of mild mitral stenosis. There is mild mitral regurgitation. There is mild aortic regurgitation. Compared to the prior echo study, there has been no change in the severity of aortic regurgitation. There is moderate tricuspid regurgitation. Compared to the prior echo exam, there has been no change in TR severity. The right ventricular systolic pressure is estimated to be at least 50 mmHg based on an estimated right atrial pressure of 15 mm Hg. Compared to the prior echo exam, there has been an increase in the severity of pulmonary hypertension. Procedure: A two-dimensional transthoracic echocardiogram with color flow and Doppler was performed. The study quality was technically adequate. Comparison is made with the echocardiogram of 05/24/2021. The patient had occasional PVCs during the exam. The patient was in atrial fibrillation with heart rates between 46-69 bpm during the exam. Left Ventricle: The left ventricle is normal in size. Proximal septal thickening is noted. There is no thrombus. The ejection fraction is estimated to be 60-65%. The left ventricular ejection fraction is normal. There are no focal wall motion abnormalities. Diastolic function could not be accurately assessed due to atrial fibrillation. Right Ventricle: The right ventricle is normal size. The right ventricular systolic function is normal. Atria: The left atrium is severely dilated. There has been no significant change since the previous study. The right atrium is moderately dilated. There is no Doppler evidence for an interatrial shunt. Mitral Valve: There is mild to moderate mitral annular calcification. Mild to moderately thickened anterior mitral leaflet. 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 No significant mitral valve stenosis. Mean gradient about 4.6 mmHg suggestive of mild mitral stenosis. 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 The mitral valve mean gradient is 4.6 mmHg. There is mild mitral regurgitation. Aortic Valve: The aortic valve is trileaflet. The aortic valve opens well. The aortic valve is slightly calcified. There is no aortic valve stenosis. There is mild aortic regurgitation. Compared to the prior echo study, there has been no change in the severity of aortic regurgitation. Tricuspid Valve: The tricuspid valve is normal. There is moderate tricuspid regurgitation. The right ventricular systolic pressure is estimated to be at least 50 mmHg based on an estimated right atrial pressure of 15 mm Hg. Compared to the prior echo exam, there has been no change in TR severity. Compared to the prior echo exam, there has been an increase in the severity of pulmonary hypertension. Pulmonic Valve: The pulmonic valve is not well visualized. There is no pulmonic valvular regurgitation. Great Vessels: The aortic root is normal size. The ascending aorta is normal in size. The IVC is dilated (diameter is greater than 2.1 cm) and it collapses less than 50% with a sniff. This suggests a high right atrial pressure of 15 mm Hg. Pericardium/ Pleura There is no pericardial effusion. There is no pleural effusion. MMode/2D Measurements & Calculations LVIDd: 4.8 cm LVOT diam: 2.4 cm LVIDs: 3.0 cm Ao root diam: 3.8 cm FS: 36.9 % asc Aorta Diam: 3.4 cm IVSd: 1.3 cm Ao Arch Diam (Prox Trans): 2.8 cm LVPWd: 0.93 cm LV avina. diameter/BSA (cm/m^2): 2.8 LV sys. diameter/BSA (cm/m^2): 1.8 LA A2 area: 36.1 cm2 RA long axis: 6.4 cm LA A4 area: 29.9 cm2 RA area: 23.5 cm2 LA length (vol): 6.7 cm RA vol: 73.8 ml LA vol: 136.1 ml RA : 43.3 ml/m2 LA vol index: 79.9 ml/m2 IVC diam: 2.5 cm RVD1 (basal): 3.7 cm TAPSE: 1.7 cm Doppler Measurements & Calculations Ao V2 max: 120.6 cm/sec LVOT Max Ricky: 87.6 cm/sec Ao V2 mean: 88.9 cm/sec LV V1 max P.1 mmHg Ao max P.8 mmHg LV V1 VTI: 20.9 cm Ao mean P.5 mmHg JESSIE(I,D): 3.5 cm2 Ao V2 VTI: 27.4 cm JESSIE(V,D): 3.3 cm2 sev ratio: 0.76 JESSIE indexed to BSA (cm^2/m^2): 2.0 AI P1/2t: 916.7 msec AI dec slope: 122.9 cm/sec2 MV E max ricky: 166.7 cm/sec TR max ricky: 294.2 cm/sec MV A max ricky: 1.1 cm/sec TR max P.6 mmHg MV E/A: 150.9 PA V2 max: 95.1 cm/sec Med Peak E' Ricky: 5.3 cm/sec PA V2 mean: 65.5 cm/sec E/E' med: 31.5 PA mean P.9 mmHg Lat Peak E' Ricky: 11.8 cm/sec PA pr(Accel): 31.0 mmHg E/E' lat: 14.2 E/e' average: 22.9 MV dec time: 0.32 sec MVA(VTI): 2.2 cm2 MV V2 mean: 94.0 cm/sec SV(LVOT): 95.4 ml MV mean P.6 mmHg MV V2 VTI: 44.0 cm Reading Physician:05:21 PM
== END ==
PROVIDERS: PCP Physician Assistant; Referring Provider Internal Medicine Cardiovascular Disease; Visit Provider Internal Medicine Cardiovascular Disease
DX: Z98.890 Other specified postprocedural states (principal); I08.3 Combined rheumatic disorders of mitral, aortic and tricuspid valves
CPT/HCPCS: 93306

== ENCOUNTER → 2023-03-29 07:35 | Outpatient (CLI) | payer OTHER, SELFPAY ==
[2020-06-15 11:55] VITALS: BMI 29.3
[2023-03-29 08:46] LABS: Magnesium 2.1 mg/dL (1.6-2.3)
[2023-03-29 08:49] LABS: NT-proBNP (BNP-Adult 18+) 350 pg/mL (<450)
[2023-03-29 09:13] LABS: Thyroid Stimulating Hormone 1.03 uIU/mL (0.47-4.68)
== END ==
PROVIDERS: PCP Physician Assistant; Referring Provider Internal Medicine Cardiovascular Disease; Visit Provider Internal Medicine Cardiovascular Disease
DX: I48.20 Chronic atrial fibrillation, unspecified (principal); I10 Essential (primary) hypertension; I27.21 Secondary pulmonary arterial hypertension; I51.89 Other ill-defined heart diseases
CPT/HCPCS: 36415; 83735; 83880; 84443

== ENCOUNTER → 2023-06-04 09:31 | Outpatient (CLI) | payer OTHER, SELFPAY ==
[2020-06-15 11:55] VITALS: BMI 29.3
--- NOTE | 2023-06-04 | DI.NM.S_ITS ---
PROCEDURE: NM JASMEET PERF SPECT R&S PHARM Rest and pharmacological stress myocardial perfusion SPECT with gated imaging and ejection fraction RADIOPHARMACEUTICAL: 11.7 mCi Tc-99m tetrafosmin IV at rest and 25.9 mCi Tc-99m tetrafosmin IV at peak effect of pharmacological stress. A 3-wof-glffayur was performed. INDICATIONS: Atrial fibrillation TECHNIQUE: Radiopharmaceutical was injected at peak stress test, and also at rest. SPECT images were obtained. SPECT myocardial perfusion images were displayed in short axis, horizontal long axis, and vertical long axis views. Gated images were reviewed using [employer] software. COMPARISON: None. CARDIAC STRESS: A pharmacologic stress test was performed under the supervision of an attending staff, using an infusion of regadenoson 0.4 mg IV. Hemodynamic data: There is normal blood pressure and heart rate response to pharmacologic stress. Symptoms: The patient denied anginal chest pain. EKG: No diagnostic changes of ischemia; no ectopy. FINDINGS: Raw data: There is good myocardial uptake of radiotracer. No significant motion artifacts. Uaek-sl-kkyqy ratio is 0.43 (normal is less than 0.38 for tetrafosmin tracer). Left ventricle function: Gated images demonstrate normal left ventricular wall thickening. No segmental wall motion abnormalities. No transient ischemic dilation; TID is 0.94 (normal less than 1.3). Left ventricle resting end diastolic volume is 128 mL. Left ventricle stress ejection fraction is 70%; normal range is above 45%. Myocardial perfusion: There is a small size, mild to moderate intensity fixed apical and apical lateral wall defect. No reversible perfusion defects. IMPRESSION: Low risk study. No reversible perfusion defects. The small size, mild to moderate intensity fixed apical and apical lateral wall defect is occurring in the setting of normal wall motion and likely related to apical thinning. It was noted to be present on the prior stress test 11/27/2013. Mildly increased LVEDV with normal EF. Dictated by: Mimi Benz D.O. on 06/04/2023 at 17:27 Approved by: Mimi Benz D.O. on 06/04/2023 at 17:31
== END ==
PROVIDERS: PCP Physician Assistant; Referring Provider Internal Medicine Cardiovascular Disease; Visit Provider Internal Medicine Cardiovascular Disease
DX: I48.20 Chronic atrial fibrillation, unspecified (principal)
CPT/HCPCS: 78452; 93017; A9502; J2785

== ENCOUNTER → 2023-09-12 07:43 | Outpatient (CLI) | payer OTHER, SELFPAY ==
[2020-06-15 11:55] VITALS: BMI 29.3
--- NOTE | 2023-09-12 07:44 | DI.RAD.S_ITS ---
PROCEDURE: XR KUB INDICATIONS: Kidney stones TECHNIQUE: One view of the abdomen acquired. COMPARISON: [facility], CR, XR KUB, 08/01/2022, 10:41. [facility], CR, XR KUB, 07/26/2021, 9:07. FINDINGS: Surgical changes and devices: None. Bowel: Bowel gas pattern is normal. Soft tissues: No suspicious abdominal calcifications. Visualized solid organ contours appear normal in size. Bones: No suspicious bony lesions. IMPRESSION: No renal stones appreciated. Dictated by: Alden Carmona M.D. on 09/12/2023 at 10:45 Approved by: Alden Carmona M.D. on 09/12/2023 at 10:46
[2023-09-15 07:36] LABS: PSA Free % 12.4 % (.); PSA, Total 2.1 ng/mL (0.0-4.0)
== END ==
PROVIDERS: PCP Physician Assistant; Referring Provider Urology; Visit Provider Urology
DX: N28.89 Other specified disorders of kidney and ureter (principal); R97.20 Elevated prostate specific antigen [PSA]
CPT/HCPCS: 36415; 74018; 84153; 84154

== ENCOUNTER → 2023-10-31 10:04 | Outpatient (CLI) | payer OTHER, SELFPAY ==
[2020-06-15 11:55] VITALS: BMI 29.3
--- NOTE | 2023-10-31 10:05 | DI.RAD.S_ITS ---
PROCEDURE: XR FOOT RT MIN 3V INDICATIONS: Ankle swelling and pain TECHNIQUE: 3 views of the foot were acquired. COMPARISON: [facility], , FOOT 3V RIGHT, 04/01/2014, 15:31. FINDINGS: Bones: No fractures or dislocations. No suspicious bony lesions. Small plantar calcaneal enthesophyte. Soft tissues: No tibiotalar joint effusion. Achilles tendon appears normal. IMPRESSION: No acute bony abnormality. If clinical symptoms persist, consider repeat radiograph in 10-14 days versus cross-sectional imaging. Dictated by: Jessica Hernandez M.D. on 10/31/2023 at 17:01 Approved by: Jessica Hernandez M.D. on 10/31/2023 at 17:02
--- NOTE | 2023-10-31 10:05 | DI.RAD.S_ITS ---
PROCEDURE: XR ANKLE RT MIN 3V INDICATIONS: Ankle swelling and pain TECHNIQUE: 3 views of the ankle were acquired. COMPARISON: None. FINDINGS: Bones: Single screw fixation of the distal fibula is intact with no perihardware lucency to suggest hardware loosening. No fractures or dislocations. Healed fracture deformity of the distal tibia and fibula. Ankle mortise is normally aligned. No suspicious bony lesions. Plantar calcaneal enthesophyte. Soft tissues: No tibiotalar joint effusion. Achilles tendon appears normal. IMPRESSION: 1. Single screw fixation of the distal fibula is intact without complication. 2. No acute osseous abnormality. If clinical symptoms persist, consider repeat radiograph in 10-14 days versus cross-sectional imaging. Dictated by: Jessica Hernandez M.D. on 10/31/2023 at 13:26 Approved by: Jessica Hernandez M.D. on 10/31/2023 at 14:10
== END ==
LOC: RAD 10:05
PROVIDERS: PCP Physician Assistant; Referring Provider Nurse Practitioner Family; Visit Provider Nurse Practitioner Family
DX: M25.571 Pain in right ankle and joints of right foot (principal); M77.31 Calcaneal spur, right foot; M79.671 Pain in right foot; M25.473 Effusion, unspecified ankle; S82.831S Other fracture of upper and lower end of right fibula, sequela; S82.301S Unspecified fracture of lower end of right tibia, sequela
CPT/HCPCS: 73610; 73630

== ENCOUNTER → 2024-03-19 07:35 | Outpatient (CLI) | payer OTHER, SELFPAY ==
[2020-06-15 11:55] VITALS: BMI 29.3
[2024-03-19 09:23] LABS: Mean Corpuscular HGB Conc 34.3 % (30-36); Mean Corpuscular Hemoglobin 31.1 PG (26-34); Mean Corpuscular Volume 90.7 fL (80-100); Platelet Count 170 X10^3/uL (150-400); Red Blood Cell Count 4.19 X10^6/uL (4.5-5.9); White Blood Cell Count 4.9 X10^3/uL (4.5-11.0)
[2024-03-19 09:37] LABS: Alanine Aminotransferase 25 IU/L (<50); Albumin Globulin Ratio 1.5 (1.0-2.8); Alkaline Phosphatase 60 U/L (38-126); Aspartate Aminotransferase 34 IU/L (17-59); BUN Creatinine Ratio 15.9 (6-22); Bilirubin Total 0.8 mg/dL (0.2-1.3); Blood Urea Nitrogen 10 mg/dL (9-20); Calcium 9.5 mg/dL (8.4-10.2); Carbon Dioxide 29 mmol/L (22-32); Chloride 103 mmol/L (98-107); Cholesterol 132 mg/dL (140-199); Estimated Glomerular Filt Rate > 60 mL/min (>60); Globulin 2.7 g/dL (1.7-4.1); Glucose 109 mg/dL (80-110); HDL Cholesterol 45 mg/dL (40-60); HEMOLYSIS < 15 (0-50); LDL Cholesterol Calculated 77 mg/dL (<100); Potassium 4.4 mmol/L (3.4-5.1); Sodium 139 mmol/L (137-145); Total Protein 6.7 g/dL (6.3-8.2); Triglycerides 52 mg/dL (35-150)
== END ==
PROVIDERS: PCP Physician Assistant; Referring Provider Nurse Practitioner; Visit Provider Nurse Practitioner
DX: I10 Essential (primary) hypertension (principal); E78.5 Hyperlipidemia, unspecified
CPT/HCPCS: 36415; 80053; 80061; 85027

== ENCOUNTER → 2024-05-16 07:57 | Outpatient (CLI) | payer OTHER, SELFPAY ==
[2020-06-15 11:55] VITALS: BMI 29.3
--- NOTE | 2024-05-16 07:58 | DI.ECHO.S_ITS ---
[facility] : : [address] : : [place] : : [id number] : : Phone: [phone] Echocardiogram Report + + :Name: MELLY STANTON Study Date: 05/16/2024 Height: 60 in : :Hospital ReadingLocation: Weight: 160 lb : : Gender: Male BSA: 1.7 m2 : :: 1940 Age: 83 yrs BP: 132/92 mmHg: :Reason For Study: S/P MITRAL VALVE REPAIR, NONRHUEMATIC : :TRICUSPID VALVE REGURGITATION : :Ordering Physician: FRANCESCO, : :JIM Performed By: John Garcia : :Referring: JIM MAYA : + + Interpretation Summary The patient was in atrial fibrillation with heart rates between 43-67 bpm during the exam. The left ventricle is normal in size. Left ventricular ejection fraction is estimated to be 60 +/- 5%. No significant change in LV EF. Previously about 60 to 65%. E/E' med: 48.8, previously 31.5. Suggestive of elevated LV filling pressure. The right ventricle is mildly dilated. Right ventricular size has increased since the prior echo exam. 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 There is mild mitral regurgitation. No significant change in MR. The mitral valve mean gradient is 3.4 mmHg. Previously 4.6 mmHg. There is mild mitral stenosis. There is mild aortic regurgitation. Compared to the prior echo study, there has been no change in the severity of aortic regurgitation. There is moderate tricuspid regurgitation. Compared to the prior echo exam, there has been no change in TR severity. The right ventricular systolic pressure is estimated to be at least 49 mmHg based on an estimated right atrial pressure of 15 mm Hg. Previously 50 mmHg. Compared to the prior echo exam, there has been no significant change in the severity of pulmonary hypertension. 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 3.7 cm in diameter. Previously 3.4 cm. BP: 124/79 mmHg Procedure: A two-dimensional transthoracic echocardiogram with color flow and Doppler was performed. The study quality was technically good. Comparison is made with the echocardiogram of 03/21/2023. The patient was in atrial fibrillation with heart rates between 43-67 bpm during the exam. Left Ventricle: The left ventricle is normal in size. Left ventricular wall thickness is mildly increased. There is no thrombus. Left ventricular ejection fraction is estimated to be 60 +/- 5%. Septal motion is consistent with conduction abnormality. E/E' med: 48.8. Diastolic parameters suggest probable elevated filling pressures. Right Ventricle: The right ventricle is mildly dilated. Right ventricular size has increased since the prior echo exam. The right ventricular systolic function is normal. Atria: The left atrium is severely dilated. There has been no significant change since the previous study. The right atrium is moderately dilated. There has been no significant change since the previous study. There is no Doppler evidence for an interatrial shunt. Mitral Valve: There is mild to moderate mitral annular calcification. Mild to moderately thickened anterior mitral leaflet. 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 There is mild mitral stenosis. The mitral valve mean gradient is 3.4 mmHg. There is mild mitral regurgitation. Aortic Valve: The aortic valve is trileaflet. The aortic valve opens well. The aortic valve is mildly calcified. There is mild aortic regurgitation. Compared to the prior echo study, there has been no change in the severity of aortic regurgitation. Tricuspid Valve: The tricuspid valve is normal. There is moderate tricuspid regurgitation. The right ventricular systolic pressure is estimated to be at least 49 mmHg based on an estimated right atrial pressure of 15 mm Hg. Compared to the prior echo exam, there has been no change in TR severity. Compared to the prior echo exam, there has been no change in the severity of pulmonary hypertension. Pulmonic Valve: There is no pulmonic valvular regurgitation. Great Vessels: The aortic root is normal size. 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 The pulmonary artery is normal size. The IVC is dilated (diameter is greater than 2.1 cm) and it collapses less than 50% with a sniff. This suggests a high right atrial pressure of 15 mm Hg. Pericardium/ Pleura There is no pericardial effusion. There is no pleural effusion. MMode/2D Measurements & Calculations LVIDd: 4.8 cm LVOT diam: 2.1 cm LVIDs: 3.3 cm Ao root diam: 3.8 cm FS: 31.8 % asc Aorta Diam: 3.7 cm EPSS: 0.97 cm IVSd: 1.2 cm LVPWd: 1.1 cm LV avina. diameter/BSA (cm/m^2): 2.8 LV sys. diameter/BSA (cm/m^2): 1.9 LA A2 area: 33.1 cm2 RA long axis: 6.5 cm LA A4 area: 36.8 cm2 RA area: 21.7 cm2 LA length (vol): 7.3 cm RA vol: 61.3 ml LA vol: 141.9 ml RA : 36.1 ml/m2 LA vol index: 83.6 ml/m2 IVC diam: 2.6 cm RVD1 (basal): 4.3 cm RVD2 (mid): 3.3 cm TAPSE: 1.8 cm Doppler Measurements & Calculations Ao V2 max: 111.0 cm/sec LVOT Max Ricky: 87.7 cm/sec Ao V2 mean: 76.5 cm/sec LV V1 max P.1 mmHg Ao max P.9 mmHg LV V1 VTI: 21.4 cm Ao mean P.6 mmHg JESSIE(I,D): 3.0 cm2 Ao V2 VTI: 24.7 cm JESSIE(V,D): 2.7 cm2 sev ratio: 0.87 JESSIE indexed to BSA (cm^2/m^2): 1.7 AI P1/2t: 841.8 msec AI dec slope: 178.7 cm/sec2 MV E max ricky: 171.5 cm/sec TR max ricky: 291.4 cm/sec MV A max ricky: 32.9 cm/sec TR max P.0 mmHg MV E/A: 5.2 PA V2 max: 78.9 cm/sec Med Peak E' Ricky: 3.5 cm/sec PA V2 mean: 48.6 cm/sec E/E' med: 48.8 PA mean P.1 mmHg Lat Peak E' Ricky: 5.8 cm/sec PA pr(Accel): 67.0 mmHg E/E' lat: 29.4 E/e' average: 39.1 MV dec time: 0.23 sec MVA(VTI): 1.4 cm2 MV V2 mean: 78.5 cm/sec SV(LVOT): 73.2 ml MV mean P.4 mmHg MV V2 VTI: 54.1 cm Reading Physician:04:[id number] PM
== END ==
PROVIDERS: PCP Physician Assistant; Referring Provider Internal Medicine Cardiovascular Disease; Visit Provider Internal Medicine Cardiovascular Disease
DX: I08.3 Combined rheumatic disorders of mitral, aortic and tricuspid valves (principal); I27.21 Secondary pulmonary arterial hypertension; I77.89 Other specified disorders of arteries and arterioles; Z98.890 Other specified postprocedural states
CPT/HCPCS: 93306

== ENCOUNTER → 2024-09-17 10:45 | Outpatient (CLI) | payer OTHER, SELFPAY ==
[2020-06-15 11:55] VITALS: BMI 29.3
--- NOTE | 2024-09-17 10:48 | DI.RAD.S_ITS ---
PROCEDURE: XR KUB INDICATIONS: Hixtory of kidney stones TECHNIQUE: One view of the abdomen acquired. COMPARISON: [facility], CR, XR KUB, 09/12/2023, 7:58. FINDINGS: Stool gas pattern: Large amount of colonic stool noted. The stomach small and large bowel are grossly normal in caliber no evidence of obstruction.. No free intraperitoneal or extraperitoneal air. No gross evidence of ascites Soft tissues: There are multiple small rounded calcifications in the true pelvis. Most, if not all these represent phleboliths however distal ureteral stones cannot be excluded. No soft tissue masses. Organs: No gross evidence for organomegaly. IMPRESSION: Multiple small pelvic calcifications are likely phleboliths or tiny calcified granulomas. One or more could potentially represent a distal ureteral stone. This will require CT for exclusion Dictated by: Eric Cardoso M.D. on 09/18/2024 at 12:11 Approved by: Eric Cardoso M.D. on 09/18/2024 at 12:13
[2024-09-17 12:53] LABS: Prostate Specific Antigen 1.53 ng/mL (0.10-4.00)
== END ==
PROVIDERS: PCP Physician Assistant; Referring Provider Urology; Visit Provider Urology
DX: R97.20 Elevated prostate specific antigen [PSA] (principal); Z87.442 Personal history of urinary calculi; R31.0 Gross hematuria
CPT/HCPCS: 36415; 74018; 84153